=== PATIENT | male | born 1950 | race Caucasian/White ===

== ENCOUNTER 2016-03-29 09:29 | Outpatient (CLI) | payer MEDICARE, BC ==
[2016-03-29] MEDS ORDERED: ALBUTEROL NEB 2.5 MG/3 ML INH ONE (10:04)
== END 2016-03-29 09:30 | disposition home or self-care (01) ==
DX: R06.2 Wheezing (principal); J98.4 Other disorders of lung
CPT/HCPCS: 94060; 94729; J7613

== ENCOUNTER 2016-04-15 07:10 | Outpatient (CLI) | payer MEDICARE, BC ==
[2016-04-15] MEDS ORDERED: IOPAMIDOL-300 100 ML VIAL IVP ONE (11:47)
== END 2016-04-15 07:11 | disposition home or self-care (01) ==
DX: J98.4 Other disorders of lung (principal); J44.9 Chronic obstructive pulmonary disease, unspecified; J45.909 Unspecified asthma, uncomplicated
CPT/HCPCS: 71260; Q9967

== ENCOUNTER 2016-10-18 09:11 | Outpatient (CLI) | payer MEDICARE, BC ==
--- NOTE | 2016-10-18 10:19 | XRAY Report ---
MODIFIED BARIUM SWALLOW: 10/18/2016 CLINICAL INDICATION: Dysphagia. FINDINGS: Various consistencies of barium were prepared and administered in conjunction with Speech Pathology. There is trace penetration with thin liquids, without casey aspiration. Other consistenc ies are unremarkable. Please also refer to full report from Speech Pathology. IMPRESSION: TRACE PENETRATION WITH THIN LIQUIDS, WITHOUT CASEY ASPIRATION. FLUOROSCOPY TIME: 58 seconds; 1 spot image obtained (cinefluoroscopy recorded). JOB #: [id number] EXT JOB #:[id number]
== END 2016-10-18 09:12 | disposition home or self-care (01) ==
LOC: DI 09:11
PROVIDERS: ATTEND Physician Assistant Medical
DX: R13.10 Dysphagia, unspecified (principal)
CPT/HCPCS: 74230; 92611; G8996; G8997; G8998

== ENCOUNTER 2017-04-13 09:11 | Day surgery (SDC) | payer MEDICARE, BC ==
[2017-04-13] MEDS ORDERED: LACTATED RINGERS 1,000 ML IV ONE ×3 (09:39→10:03)
[2017-04-13] MEDS ORDERED: MIDAZOLAM 2 MG/2 ML VIAL IVP ONE (09:57)
[2017-04-13] MEDS ORDERED: fentaNYL 100 MCG/2 ML VIAL IVP ONE (09:57)
[2017-04-13 11:01] VITALS: BP 105/65
== END 2017-04-13 09:12 | disposition home or self-care (01) ==
LOC: SDS 09:11
PROVIDERS: ATTEND Surgery
PROC: 0DJD8ZZ Inspection of Lower Intestinal Tract, Via Natural or Artificial Opening Endoscopic (ICD-10-PCS; principal; 2017-04-13 10:30)
DX: Z12.11 Encounter for screening for malignant neoplasm of colon (principal); Z86.010 Personal history of colon polyps; K64.8 Other hemorrhoids; K57.30 Diverticulosis of large intestine without perforation or abscess without bleeding; K55.20 Angiodysplasia of colon without hemorrhage; I10 Essential (primary) hypertension; Z87.891 Personal history of nicotine dependence
CPT/HCPCS: G0105; J7120

== ENCOUNTER 2017-11-07 08:47 | Emergency (ER) | payer MEDICARE, BC ==
[2017-11-07] MEDS ORDERED: LIDOCAINE PATCH 5% TOP PRN (09:24)
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
[2017-11-07] MEDS ORDERED: IOPAMIDOL-300 100 ML VIAL ONE (09:28)
[2017-11-07 10:38] LABS: BASOPHILS % (AUTO) 0.9 %; EOSINOPHILS # (AUTO) 0.4 10^3/uL (0.0-0.7); EOSINOPHILS % (AUTO) 7.4 %; LYMPHOCYTES # (AUTO) 1.1 10^3/uL (1.5-3.5); LYMPHOCYTES % (AUTO) 19.6 %; MEAN CORPUSCULAR HEMOGLOBIN 30.6 pg (27.0-31.0); MEAN CORPUSCULAR HGB CONC 33.6 g/dL (32.0-36.0); MEAN CORPUSCULAR VOLUME 90.9 fL (80.0-94.0); MEAN PLATELET VOLUME 8.7 fL (7.4-11.4); MONOCYTES # (AUTO) 0.6 10^3/uL (0.0-1.0); MONOCYTES % (AUTO) 11.2 %; NEUTROPHILS # (AUTO) 3.4 10^3/uL (1.5-6.6); NEUTROPHILS % (AUTO) 60.9 %; PLT - PLATELET COUNT 179 10^3/uL (130-450); RED BLOOD COUNT 6.23 10^6/uL (4.70-6.10); RED CELL DISTRIBUTION WIDTH 16.3 % (12.0-15.0); WHITE BLOOD COUNT 5.7 x10^3/uL (4.8-10.8)
[2017-11-07 10:52] LABS: ALBUMIN 4.4 g/dL (3.2-5.5); ALBUMIN/GLOBULIN RATIO 1.3 (1.0-2.2); BILIRUBIN,TOTAL 1.1 mg/dL (0.2-1.0); CALCIUM 9.3 mg/dL (8.5-10.3); CREATININE 0.9 mg/dL (0.6-1.2); TOTAL PROTEIN 7.7 g/dL (6.7-8.2)
[2017-11-07 11:04] LABS: BILIRUBIN,URINE NEGATIVE (NEGATIVE); GLUCOSE, URINE (UA) NEGATIVE (NEGATIVE); KETONES,URINE (UA) NEGATIVE (NEGATIVE); LEUKOCYTE ESTERASE, URINE NEGATIVE (NEGATIVE); NITRITE,URINE NEGATIVE (NEGATIVE); OCCULT BLOOD,URINE NEGATIVE (NEGATIVE); PROTEIN,URINE NEGATIVE (NEGATIVE); UROBILINOGEN,URINE 0.2 (NORMAL) E.U./dL (NORMAL)
[2017-11-07 11:08] LABS: CLARITY,URINE CLEAR (CLEAR)
[2017-11-07] MEDS ORDERED: IOPAMIDOL-300 100 ML VIAL IVP ONE (11:17)
--- NOTE | 2017-11-07 11:41 | CT Report ---
Reason: blunt trauma R mid abd, flank pain Procedure Date: 11/07/2017 Accession Number: [id number] / [id number] Procedure: CT - Abdomen/Pelvis W/ CPT Code: FULL RESULT: EXAM: CT ABDOMEN AND PELVIS EXAM DATE: 11/07/2017 11:14 AM. CLINICAL HISTORY: Blunt trauma right mid abdomen; flank pain. COMPARISONS: None. TECHNIQUE: Routine helical CT imaging was performed through the abdomen and pelvis. IV contrast: CE. Enteric contrast: No. Reconstructions: Coronal and sagittal. In accordance with CT protocol optimization, one or more of the following dose reduction techniques were utilized for this exam: automated exposure control, adjustment of mA and/or KV based on patient size, or use of iterative reconstructive technique. FINDINGS: Lung Bases: Unremarkable. Liver: Normal. No masses. Gallbladder/Bile Ducts: Unremarkable. Spleen: Normal. Pancreas: Normal. Adrenal Glands: Normal. Kidneys: Normal. No masses or hydronephrosis. Peritoneal Cavity/Bowel: Diverticulosis without evidence of diverticulitis. No free fluid, free air or adenopathy. No masses or acute inflammatory process. The appendix is well visualized and normal. Pelvic Organs: Normal. The bladder and visualized pelvic organs are within normal limits. Vasculature: Atherosclerotic aorta without aneurysm. Bones: Degenerative changes with a levoconvex thoracolumbar scoliosis which is mild. No aggressive osseous lesions. Other: Soft tissue stranding is seen in the superficial soft tissues and abdominal wall musculature on the right. Fat-containing umbilical hernia. IMPRESSION: Superficial soft tissue trauma without evidence of deep visceral or osseous injury. RADIA
[2017-11-07 12:38] VITALS: BP 131/71
== END 2017-11-07 13:33 | disposition home or self-care (01) ==
LOC: ED 08:47
DX: S39.91XA Unspecified injury of abdomen, initial encounter (principal); W22.8XXA Striking against or struck by other objects, initial encounter; X50.0XXA Overexertion from strenuous movement or load, initial encounter; I10 Essential (primary) hypertension
CPT/HCPCS: 36415; 74177; 80053; 81003; 83690; 85025; 99283; 99284; A9270; Q9967; 81001; 87086

== ENCOUNTER 2019-04-05 08:44 | Outpatient (CLI) | payer MEDICARE, BC ==
--- NOTE | 2019-04-05 11:31 | Ultrasound Report ---
Reason: INCX HGB, POLYCYTHEMIA Procedure Date: 04/05/2019 Accession Number: [id number] / [id number] Procedure: US - Abdomen Complete CPT Code: Final Report FULL RESULT: EXAM: ABDOMEN ULTRASOUND EXAM DATE: 04/05/2019 09:40 AM. CLINICAL HISTORY: Increased hemoglobin, polycythemia, hypertension, rule out renal tumor. COMPARISON: ABDOMEN/PELVIS W11/07/2017 11:11 AM. TECHNIQUE: Real-time scanning was performed with static images obtained. FINDINGS: Liver: Normal in size and echotexture. 19.4 cm. Main portal vein flow: Hepatopetal. Gallbladder: Normal. No stones, wall thickening, or sonographic Crow's sign. Biliary System: Common bile duct measures 5 mm. No intrahepatic or extrahepatic ductal dilatation. Pancreas: Visualized portion is unremarkable. Kidneys: Right: 11.6 cm longitudinally. Normal. No contour-deforming mass, stones, or hydronephrosis. lobulations present. Left: 12.1 cm longitudinally. Normal. No contour-deforming mass, stones, or hydronephrosis. lobulations present. Spleen: 11.8 cm. Normal in size and echotexture. Aorta and Inferior Vena Cava: Unremarkable. Other: None. IMPRESSION: 1. No renal masses evident bilaterally. 2. Abdominal ultrasound within normal limits. RADIA
== END 2019-04-05 08:45 | disposition home or self-care (01) ==
LOC: DI 08:44
PROVIDERS: ATTEND Internal Medicine
DX: D75.1 Secondary polycythemia (principal)
CPT/HCPCS: 76700

== ENCOUNTER 2019-04-18 08:21 | Outpatient (CLI) | payer MEDICARE, BC | END 2019-04-18 08:22 | disposition home or self-care (01) | LOC: RT 08:21 | PROVIDERS: ATTEND Surgery | DX: K40.90 Unilateral inguinal hernia, without obstruction or gangrene, not specified as recurrent (principal) | CPT/HCPCS: 93005 ==

== ENCOUNTER 2019-04-29 08:28 | Day surgery (SDC) | payer MEDICARE, BC ==
[~2019-04-29 08:28] MED LIST: CEFAZOLIN SODIUM IN 0.9 % NACL 2 GM/100 ML BAG IV ONE; ENOXAPARIN 30 MG/0.3 ML SYRINGE SUBQ ONE
[2019-04-29] MEDS ORDERED: LACTATED RINGERS 1,000 ML IV ONE ×2 (08:37→14:02)
--- NOTE | 2019-04-29 11:12 | ANESTHESIA ---
Pre-Anesthesia VS, & Labs - Diagnosis L inguinal hernia, umbilical hernia - Procedure L inguinal hernia repair, umbilical hernia repair Vital Signs: Temp Pulse Resp BP Pulse Ox 36.2 C L 54 L 12 138/81 H 96 04/29/19 08:37 04/29/19 08:37 04/29/19 08:37 04/29/19 08:37 04/29/19 08:37 Height 5 ft 10 in Weight (kg) 93.5 kg Body Mass Index 29.5 - NPO >8 hours - Lab Results Lab results reviewed: Yes Home Medications and Allergies Home Medications: Ambulatory Orders Cholecalciferol [Vitamin D3] 5,000 unit PO DAILY 04/18/19 Fluocinonide/Emollient Base [Fluocinonide-E 0.05% Cream] 1 applic TP PRN PRN 04/18/19 Metronidazole 1% Gel [Metrogel] 1 applic TOP DAILY PRN 04/18/19 Mometasone Furoate [Asmanex] 100 mcg IH PRN PRN 04/18/19 Nystatin 1 applic TP PRN PRN 04/18/19 [place]-3S/Dha/Epa/Fish Oil [Fish Oil 1,200 mg Softgel] 2 each PO DAILY 04/18/19 Triamcinolone Acetonide 0.1% [Triamcinolone Acetonide] 1 applic TP PRN PRN 04/18/19 Aspirin [Adult Aspirin Regimen] 81 mg PO DAILY 04/29/19 Doxazosin [Cardura] 8 mg PO DAILY 04/12/17 Omeprazole [PriLOSEC] 20 mg PO DAILY 04/12/17 Propranolol [Inderal] 20 - 40 mg PO BID 04/12/17 Testosterone Cypionate 200 mg IM OAW 04/12/17 Montelukast [Singulair] 1 tab ORAL DAILY 01/24/18 Ferrous Sulfate 325 mg PO ONCE 01/09/19 Cholecalciferol [Vitamin D3] 5,000 unit PO DAILY 04/18/19 Fluocinonide/Emollient Base [Fluocinonide-E 0.05% Cream] 1 applic TP PRN PRN 04/18/19 Metronidazole 1% Gel [Metrogel] 1 applic TOP DAILY PRN 04/18/19 Mometasone Furoate [Asmanex] 100 mcg IH PRN PRN 04/18/19 Nystatin 1 applic TP PRN PRN 04/18/19 [place]-3S/Dha/Epa/Fish Oil [Fish Oil 1,200 mg Softgel] 2 each PO DAILY 04/18/19 Triamcinolone Acetonide 0.1% [Triamcinolone Acetonide] 1 applic TP PRN PRN 04/18/19 Aspirin [Adult Aspirin Regimen] 81 mg PO DAILY 04/29/19 Allergies/Adverse Reactions: Allergies Allergy/AdvReac Type Severity Reaction Status Date / Time codeine Allergy Intermediate Nausea Verified 04/10/19 14:14 Anes History & Medical History - Anesthetic History Anesthesia Complications: reports: No previous complications Family history of Anesthesia Complications: Denies Family history of Malignant Hyperthermia: Denies - Medical History Cardiovascular: reports: Hypertension Pulmonary: reports: Asthma Gastrointestinal: reports: GERD Urinary: reports: Benign prostate hypertrophy Neuro: reports: None Musculoskeletal: reports: Osteoarthritis, Chronic back pain Endocrine/Autoimmune: reports: None Skin: reports: Eczema, Psoriasis Smoking Status: Former smoker - Surgical History General: Colonoscopy Eyes Ears Nose Throat (EENT): Tonsil/Adenoidectomy Dermatologic: Skin cancer surgery Exam General: Alert, Oriented x3, Cooperative Dental: WNL, Other (recently had 2 upper molars removed 2 weeks ago, no bleeding) Mouth Openin Fingerbreadth Neck Mobility: Normal Mallampati classification: II Thyromental Distance: greater than 6 cm Respiratory: Lungs clear, Normal breath sounds Cardiovascular: Regular rate (gilberto) Neurological: Normal speech Mental/Cognitive Status: Alert/Oriented X3, Normal for patient Cognitive Status: Within normal limits Plan Anesthesia Type: General Consent for Procedure(s) Verified and Reviewed: Yes Code Status: Attempt Resuscitation ASA classification: 2-Mild systemic disease Is this case an emergency?: No
[2019-04-29] MEDS ORDERED: ceFAZolin 1 GM VIAL ONE (11:23)
[2019-04-29] MEDS ORDERED: SODIUM CHLORIDE 0.9% 10 ML ONE (11:23)
[2019-04-29] MEDS ORDERED: LIDOCAINE 1%-EPI 1:100000 20 ML MDV ONE (11:23)
[2019-04-29] MEDS ORDERED: BUPIVACAINE 0.5% PF 10 ML VIAL ONE (11:24)
[2019-04-29] MEDS ORDERED: GLYCOPYRROLATE 1 MG/5 ML VIAL IVP ONE (11:50)
[2019-04-29] MEDS ORDERED: DEXAMETHASONE 4 MG/ML VIAL IVP ONE (11:50)
[2019-04-29] MEDS ORDERED: LIDOCAINE-MPF 2% 5 ML VIAL IM ONE (11:50)
[2019-04-29] MEDS ORDERED: ePHEDrine 50 MG/ML VIAL IVP ONE (11:50)
[2019-04-29] MEDS ORDERED: KETOROLAC 30 MG/ML VIAL IVP ONE (11:50)
[2019-04-29] MEDS ORDERED: PROPOFOL 200 MG/20 ML VIAL IVP ONE (11:50)
[2019-04-29] MEDS ORDERED: NEOSTIGMINE 1 MG/1 ML 10 ML MDV IVP ONE (11:50)
[2019-04-29] MEDS ORDERED: ONDANSETRON 4 MG/2 ML VIAL IVP ONE (11:50)
[2019-04-29] MEDS ORDERED: ACETAMINOPHEN 1,000 MG/100 ML 100 ML IV ONE ×2 (11:50→12:04)
[2019-04-29] MEDS ORDERED: BUPIVACAINE 0.5% PF 30 ML VIAL SUBQ ONE (12:17)
[2019-04-29] MEDS ORDERED: LIDOCAINE 1%-EPI 1:100000 30 ML MDV SUBQ ONE (12:17)
[2019-04-29] MEDS ORDERED: ceFAZolin 1 GM VIAL IVP ONE (12:20)
--- NOTE | 2019-04-29 13:33 | OPERATIVE REPORT ---
Operative Report - General Procedure Date: 04/29/19 Planned Procedure: Umbilical hernia repair and left inguinal hernia repair Pre-Op Diagnosis: Umbilical hernia and left inguinal hernia Procedure Performed: Umbilical hernia repair and left inguinal hernia repair Post Op Diagnosis: Same - Procedure Note Primary Surgeon: Jonelle Anesthesia Provider: TA See Anesthesia Technique: General LMA, Local, Regional block Pathology: None Estimated Blood Loss (mL): 10 Findings: 4 cm umbilical hernia containing a loop of small bowel Indirect left inguinal hernia Complications: None apparent - Other Other Information/Narrative: After obtaining informed consent, the patient is brought to the operating room and placed in the supine position on the operating table. Following successful induction of general endotracheal anesthesia, appropriate padding of all bony prominences, and placement of appropriate monitors, the abdomen was prepped and draped in the standard surgical fashion. A timeout was held per scope protocol. All elements of the surgical safety checklist were followed before, during, and after the procedure. We began the procedure by infiltrating a mixture of local anesthetics around the visible and palpable umbilical defect. An incision was created directly due to through the defect and carried through the skin. We immediately encountered preperitoneal fat. The peritoneum was carefully dissected off of the overlying fascia and closed with a running Vicryl suture. We were careful to dissected in a circumferential fashion to allow space for placement of an adequate sized piece of mesh. We chose a 6.4 cm ventral Virgilio patch. This was placed on the surface of the peritoneum beneath the fascia. It was sewn into place with interrupted Vicryl sutures.The overlying leaflet was then trimmed and sewn to the fascia. The wound was checked for hemostasis. The skin was closed in 2 layers with Vicryl Monocryl suture and Dermabond was applied. We continued the procedure in the left lower quadrant by infiltrating a mixture of local anesthetics medial to the anterior superior iliac spine on the left. This was done to create an ileal inguinal nerve block. We then selected a site for an incision in the left lower quadrant just superior and lateral to the pubic tubercle. This area was anesthetized with additional local anesthetic and an incision was created here.The incision was carried down through the skin and subcutaneous tissue to reveal the fascia of the external oblique aponeurosis. Retractor was placed and the aponeurosis was opened in direction of its fibers. The ilioinguinal nerve was immediately identified. We continued by identifying the spermatic cord and gently encircling it with a [place] drain. The hernia sac was carefully dissected free from the cord structures and was noted to be in the inferior medial position. The sac was in the indirect position. We carefully dissected the spermatic cord from the sac. The hernia sac was then placed back into the abdominal cavity. We elected to repair the hernia with a large Prolene hernia system mesh implant. This was dipped in Ancef containing solution and then deployed into the defect. The posterior leaflet was straightened and flattened in the preperitoneal space. The anterior leaflet was then nicked medially to provide a place for the spermatic cord and then closed with a Vicryl suture. The more inferior aspect was then sewn to Nilay's ligament medially. Laterally it was tucked under the external beak aponeurosis. The wound was checked for hemostasis and irrigated with warm saline solution. It was aspirated free of all fluid and particulate matter. The extra oblique aponeurosis was then closed with a running locking Vicryl suture Gabriela's fascia was closed with Vicryl suture and Monocryl stitches were placed in the skin. All sponge, needle, and instrument counts were correct at the conclusion of the case. The patient was allowed awaken from anesthesia without difficulty and taken to the postanesthesia care unit in good condition.
[2019-04-29] MEDS ORDERED: ACETAMINOPHEN 325 MG TABLET PO PRN (13:38)
[2019-04-29] MEDS ORDERED: IBUPROFEN 600 MG TABLET PO PRN (13:38)
[2019-04-29] MEDS ORDERED: oxyCODONE 5 MG TABLET PO PRN (13:38)
[2019-04-29] MEDS ORDERED: ONDANSETRON 4 MG/2 ML VIAL IVP PRN (13:38)
[2019-04-29] MEDS: oxyCODONE 5 MG TABLET ONE ×3 (14:20→15:08)
[2019-04-29 15:17] VITALS: BP 120/70
== END 2019-04-29 08:29 | disposition home or self-care (01) ==
LOC: SDS 08:28
PROVIDERS: ATTEND Surgery
DX: K40.90 Unilateral inguinal hernia, without obstruction or gangrene, not specified as recurrent (principal); K42.9 Umbilical hernia without obstruction or gangrene; I10 Essential (primary) hypertension; J44.9 Chronic obstructive pulmonary disease, unspecified; K21.9 Gastro-esophageal reflux disease without esophagitis; N40.1 Benign prostatic hyperplasia with lower urinary tract symptoms; M19.90 Unspecified osteoarthritis, unspecified site; M54.9 Dorsalgia, unspecified; G89.29 Other chronic pain; Z79.890 Hormone replacement therapy; Z79.899 Other long term (current) drug therapy; Z85.828 Personal history of other malignant neoplasm of skin; Z87.891 Personal history of nicotine dependence; Z88.5 Allergy status to narcotic agent
CPT/HCPCS: 49505; 49585; A9270; C1781; J0131; J0690; J1650; J7120

== ENCOUNTER 2020-02-20 17:08 | Outpatient (CLI) | payer MEDICARE, BC | END 2020-02-20 17:09 | disposition home or self-care (01) | LOC: COV 17:08 | PROVIDERS: ATTEND Surgery | DX: Z01.812 Encounter for preprocedural laboratory examination (principal); Z20.828 Contact with and (suspected) exposure to other viral communicable diseases; K42.9 Umbilical hernia without obstruction or gangrene ==

== ENCOUNTER 2020-02-24 06:00 | Day surgery (SDC) | payer MEDICARE, BC ==
[2020-02-24] MEDS ORDERED: ceFAZolin 2 GM/50 ML 2 GM/50 ML BAG IV ONE (06:19)
[2020-02-24] MEDS ORDERED: LACTATED RINGERS 1,000 ML IV ONE ×2 (06:54→10:20)
[2020-02-24] MEDS ORDERED: NALOXONE 0.4 MG/ML VIAL IVP PRN (07:24)
[2020-02-24] MEDS ORDERED: MORPHINE 2 MG/ML CARPUJECT IVP PRN (07:24)
[2020-02-24] MEDS ORDERED: ePHEDrine 50 MG/ML VIAL IVP PRN (07:24)
[2020-02-24] MEDS ORDERED: fentaNYL 100 MCG/2 ML VIAL IVP PRN (07:24)
[2020-02-24] MEDS ORDERED: ONDANSETRON 4 MG/2 ML VIAL IVP PRN ×2 (07:24→11:27)
[2020-02-24] MEDS ORDERED: ATROPINE ABBOJECT 1 MG/10 ML SYRINGE IVP PRN (07:24)
[2020-02-24] MEDS ORDERED: METOCLOPRAMIDE 10 MG/2 ML VIAL IVP PRN (07:24)
--- NOTE | 2020-02-24 07:24 | ANESTHESIA ---
Pre-Anesthesia VS, & Labs - Diagnosis recurrent incisional hernia - Procedure laparoscopic incisional hernia repair Vital Signs: Temp Pulse Resp BP Pulse Ox 36.2 C L 56 L 16 124/75 97 02/24/20 06:28 02/24/20 06:28 02/24/20 06:28 02/24/20 06:28 02/24/20 06:28 Height: 5 ft 9 in Weight (kg): 93.2 kg Body Mass Index: 30.3 BMI Classification: Obese - NPO >8 hours - Lab Results Lab results reviewed: Yes Home Medications and Allergies Home Medications: Ambulatory Orders Testosterone Cypionate [Depo-Testosterone] 0.3 ml IM OAW 02/10/20 Doxazosin [Cardura] 8 mg PO DAILY 04/12/17 Omeprazole [PriLOSEC] 20 mg PO DAILY 04/12/17 Propranolol [Inderal] 20 - 40 mg PO BID 04/12/17 Montelukast [Singulair] 1 tab ORAL DAILY 01/24/18 Cholecalciferol [Vitamin D3] 5,000 unit PO DAILY 04/18/19 Mometasone Furoate [Asmanex] 100 mcg IH PRN PRN 04/18/19 Nystatin 1 applic TP PRN PRN 04/18/19 Triamcinolone Acetonide 0.1% [Triamcinolone Acetonide] 1 applic TP PRN PRN 04/18/19 Aspirin [Adult Aspirin Regimen] 81 mg PO DAILY 04/29/19 Testosterone Cypionate [Depo-Testosterone] 0.3 ml IM OAW 02/10/20 Allergies/Adverse Reactions: Allergies Allergy/AdvReac Type Severity Reaction Status Date / Time codeine Allergy Intermediate Nausea Verified 12/25/19 11:01 Anes History & Medical History - Anesthetic History Anesthesia Complications: reports: No previous complications Family history of Anesthesia Complications: Denies Family history of Malignant Hyperthermia: Denies - Medical History Cardiovascular: reports: Hypertension Pulmonary: reports: Asthma Gastrointestinal: reports: GERD Urinary: reports: Benign prostate hypertrophy Neuro: reports: None Musculoskeletal: reports: Osteoarthritis, Scoliosis, Chronic back pain Endocrine/Autoimmune: reports: None Skin: reports: Eczema, Psoriasis Smoking Status: Former smoker - Surgical History General: Colonoscopy Eyes Ears Nose Throat (EENT): Tonsil/Adenoidectomy Dermatologic: Skin cancer surgery Exam General: Alert, Oriented x3, Cooperative, No acute distress Dental: WNL Mallampati classification: II Respiratory: Lungs clear, Normal breath sounds, No respiratory distress, No accessory muscle use Cardiovascular: Regular rate, Normal S1, Normal S2, No murmurs Plan Anesthesia Type: General, Transverse Abdominis Plane (TAP) Block (if requested by surgeon) Consent for Procedure(s) Verified and Reviewed: Yes Code Status: Attempt Resuscitation ASA classification: 2-Mild systemic disease Is this case an emergency?: No
[2020-02-24] MEDS ORDERED: LIDOCAINE-MPF 2% 5 ML VIAL ONE (07:48)
[2020-02-24] MEDS ORDERED: fentaNYL 100 MCG/2 ML VIAL ONE (07:48)
[2020-02-24] MEDS ORDERED: MIDAZOLAM 2 MG/2 ML VIAL ONE (07:48)
[2020-02-24] MEDS ORDERED: PROPOFOL 200 MG/20 ML VIAL IVP ONE (07:48)
[2020-02-24] MEDS ORDERED: ROCURONIUM 50 MG/5 ML VIAL ONE (07:49)
[2020-02-24] MEDS ORDERED: LACTATED RINGERS 1,000 ML IV SCH (08:00)
[2020-02-24] MEDS ORDERED: LIDOCAINE 2%-EPI 1:100000 20 ML MDV ONE (08:11)
[2020-02-24] MEDS ORDERED: ceFAZolin 1 GM VIAL ONE (08:11)
[2020-02-24] MEDS ORDERED: BUPIVACAINE 0.5% PF 30 ML VIAL ONE (08:11)
[2020-02-24] MEDS ORDERED: DEXAMETHASONE 4 MG/ML VIAL ONE (08:35)
[2020-02-24] MEDS ORDERED: KETOROLAC 30 MG/ML VIAL ONE (08:35)
[2020-02-24] MEDS ORDERED: ACETAMINOPHEN 1,000 MG/100 ML 100 ML IV ONE (08:35)
[2020-02-24] MEDS ORDERED: ONDANSETRON 4 MG/2 ML VIAL ONE (08:35)
[2020-02-24] MEDS ORDERED: SODIUM CHLORIDE 0.9% 10 ML ONE (08:39)
[2020-02-24] MEDS ORDERED: GLYCOPYRROLATE 1 MG/5 ML VIAL ONE (08:45)
[2020-02-24] MEDS ORDERED: BUPIVACAINE 0.5% PF 30 ML VIAL INFIL ONE (08:48)
[2020-02-24] MEDS ORDERED: LIDOCAINE 2%-EPI 1:100000 20 ML MDV SUBQ ONE (08:48)
[2020-02-24] MEDS ORDERED: ceFAZolin 1 GM VIAL IR ONE (08:49)
[2020-02-24] MEDS ORDERED: LACTATED RINGERS 200 ML IV ONE (10:00)
[2020-02-24] MEDS ORDERED: HYDROmorphone 0.5 MG/0.5 ML SYRINGE ONE ×2 (10:10→10:42)
--- NOTE | 2020-02-24 10:13 | OPERATIVE REPORT ---
Operative Report - General Procedure Date: 02/24/20 Planned Procedure: Laparoscopic repair of recurrent incisional hernia Pre-Op Diagnosis: Recurrent incisional hernia Procedure Performed: Mini laparotomy with removal of existing mesh and primary closure of ventral defect followed by laparoscopic lysis of adhesions and ventral hernia repair Post Op Diagnosis: Same - Procedure Note Primary Surgeon: Jonelle Anesthesia Provider: TA Perla Anesthesia Technique: General ET tube, Local Pathology: None IV Fluids (mL): 800 Estimated Blood Loss (mL): 50 Indications: Recurrent, symptomatic incisional hernia Findings: Existing mess well incorporated with extension of the hernia defect to the left lateral side and inferiorly Complications: None apparent - Other Other Information/Narrative: After obtaining informed consent, the patient was brought to the operating room and placed in the supine position on the operating table. Following successful induction of general endotracheal anesthesia, appropriate padding of all bony prominences and placement of appropriate monitors, the abdomen was prepped and draped in the standard surgical fashion. A Time Out was held per SCOPE protocol. All elements of the surgical safety checklist were followed before, during, and after the procedure. Following infiltration with local anesthetic to create a field block, an incision was create directly over the hernia near the umbilicus and carried through the skin and subcutaneous tissue to reveal the hernia sack and incarcerated contents. Within this large hernia sack which was entered cautiously and without any inadvertent viscus injury, we noted a knuckle of small bowel and a portion of preperitoneal fat. With great care, this tissue was teased sharply from the surrounding structures using both scalpel and Metzenbaum scissors. The bowel appeared well vascularized and fully viable. The fascia was then dissected to its respective components to allow for the ultimate primary intraperitoneal repair. The existing mesh was incorporated to the superior and left lateral side with a large defect in the sac existing in the right lateral and inferior portion. A very careful and pains taking dissection was performed to remove the existing mesh and define the edges of the defect. The hernia sac was sharply excised from the underlying subcutaneous tissue and removed.#1 Prolene sutures were then placed in the defect to close it primarily to a level where a 12 m meter trocar to be could be placed in the abdomen without leaking. The laparoscopicprocedure was selected due the size of the hernia, The existence of recurrence, and the patient's body habitus. A 12 mm trocar was placed through the defect and the abdomen was insufflated to 15mm of Hg pressure. The camera was placed in the abdominal cavity. Diagnostic laparoscopy revealed right upper quadrant and suprapubic adhesions. These were addressed sharply with laparoscopic scissors until the internal surface of the abdominal wall was free from adhesions with an appropriate surface for mesh placement. Following infiltration with local anesthetic, 4 5mm trocars were placed peripherally. One was placed in each upper quadrant and one in each lower quadrant under direct vision. A [employer] Ventralight ST 15 cm circlular implant was chosen for repair. It was rolled and placed through the centrally placed 12 mm port. The peripheral ports were utilized to straighten and flatten the mesh up against the abdominal wall. The scaffold suture was pulled taut via the 12 mm po rt and we noted good apposition of the mesh to the anterior abdominal wall. The mesh was then fixed to the abdominal wall with absorbable tacks, 30 in total. THis was performed sequentially through the 4 peripheral trocars in a 360 degree fashion. The scaffold suture was then released and the scaffolding removed via the right upper quadrant port. The abdomen was checked for hemostasis. It was irrigated with warm saline solution and aspirated free of all fluid and particulate matter. The trocars were then removed under direct vision and the abdomen was desufflated. The midline wound protector and trocar were then removed. This left a 4 cm defect with straight flat mesh at the base. The fascia was closed with interrupted 0 Vicryl sutures and the umbilicus reconstructed with 3-0 vicryl. The skin incisions were closed with monocryl and Dermabond was applied to the surface of all incisions. All sponge, needle, and instrument counts were correct at the conclusion of the case. The patient was allowed to awaken from anesthesia without difficulty and taken to the post anesthesia care unit in good condition.
[2020-02-24] MEDS: HYDROmorphone 0.5 MG/0.5 ML SYRINGE IVP PRN ×4 (10:14→10:36)
--- NOTE | 2020-02-24 10:42 | ANESTHESIA POST OP EVALUATION ---
Anesthesia Post Eval - Post Anesthesia Eval Vitals: Last Vital Signs Temp 36.5 C 02/24/20 10:40 Pulse 63 02/24/20 10:40 Resp 15 02/24/20 10:40 BP 120/74 02/24/20 10:40 Pulse Ox 96 02/24/20 10:40 CV Function Including HR & BP: positive: Stable Pain Control: positive: Satisfactory Nausea & Vomiting: positive: Negative Mental Status: positive: Baseline Respiratory Status: Airway Patent Hydration Status: Satisfactory Anesthesia Complications: positive: None
[2020-02-24] MEDS ORDERED: oxyCODONE 5 MG TABLET ONE (11:19)
[2020-02-24] MEDS ORDERED: IBUPROFEN 600 MG TABLET PO PRN (11:27)
[2020-02-24] MEDS ORDERED: ACETAMINOPHEN 325 MG TABLET PO PRN (11:27)
[2020-02-24] MEDS ORDERED: oxyCODONE 5 MG TABLET PO PRN (11:27)
[2020-02-24 11:50] VITALS: BP 119/72
[2020-02-24] MEDS ORDERED: ONDANSETRON ODT 4 MG TABLET ONE (12:32)
== END 2020-02-24 06:01 | disposition home or self-care (01) ==
LOC: SDS 06:00
PROVIDERS: ATTEND Surgery
DX: K43.0 Incisional hernia with obstruction, without gangrene (principal); K66.0 Peritoneal adhesions (postprocedural) (postinfection); C61 Malignant neoplasm of prostate; I10 Essential (primary) hypertension; J44.9 Chronic obstructive pulmonary disease, unspecified; D50.9 Iron deficiency anemia, unspecified; D47.3 Essential (hemorrhagic) thrombocythemia; D75.1 Secondary polycythemia; K21.9 Gastro-esophageal reflux disease without esophagitis; L40.9 Psoriasis, unspecified; E66.9 Obesity, unspecified; F41.0 Panic disorder [episodic paroxysmal anxiety]; Z68.30 Body mass index [BMI] 30.0-30.9, adult; M54.30 Sciatica, unspecified side; E78.00 Pure hypercholesterolemia, unspecified; N40.1 Benign prostatic hyperplasia with lower urinary tract symptoms; Z79.51 Long term (current) use of inhaled steroids; Z79.82 Long term (current) use of aspirin; Z79.899 Other long term (current) drug therapy; Z87.891 Personal history of nicotine dependence
CPT/HCPCS: 49657; A9270; J0131; J0690; J1170; J7120; Q0162

== ENCOUNTER 2022-07-04 08:03 | Outpatient (CLI) | payer MEDICARE, BC ==
[2022-07-04 08:21] LABS: BASOPHILS % (AUTO) 0.2 %; EOSINOPHILS % (AUTO) 0.6 %; HCT - HEMATOCRIT 39.9 % (42.0-52.0); HGB - HEMOGLOBIN 12.8 g/dL (14.0-18.0); MEAN CORPUSCULAR HEMOGLOBIN 29.8 pg (27.0-31.0); MEAN CORPUSCULAR HGB CONC 32.1 g/dL (32.0-36.0); MEAN CORPUSCULAR VOLUME 92.8 fL (80.0-94.0); MONOCYTES # (AUTO) 1.5 10^3/uL (0.0-1.0); MONOCYTES % (AUTO) 29.5 %; NEUTROPHILS # (AUTO) 2.4 10^3/uL (1.5-6.6); NEUTROPHILS % (AUTO) 48.9 %; PLT - PLATELET COUNT 158 10^3/uL (130-450); RED CELL DISTRIBUTION WIDTH 25.2 % (12.0-15.0)
[2022-07-04 08:44] LABS: ALBUMIN 4.1 g/dL (3.2-5.5); ALBUMIN/GLOBULIN RATIO 1.4 (1.0-2.2); ALKALINE PHOSPHATASE 59 IU/L (42-121); ALT ALANINE AMINOTRANSFERASE 15 IU/L (10-60); AST ASPARTATE AMINOTRANSFERASE 19 IU/L (10-42); BILIRUBIN,TOTAL 1.3 mg/dL (0.2-1.0); BUN - BLOOD UREA NITROGEN 11 mg/dL (6-20); CALCIUM 8.8 mg/dL (8.5-10.3); CARBON DIOXIDE - CO2 28 mmol/L (21-32); CHLORIDE 103 mmol/L (101-111); CHOL/HDL RATIO 4.6 (<5.0); CHOLESTEROL 128 mg/dL; CREATININE 0.7 mg/dL (0.6-1.2); GFR - MDRD 111 (>89); GLUCOSE 127 mg/dL (70-100); HDL CHOLESTEROL 28 mg/dL; LDL CHOLESTEROL,CALCULATED 78 mg/dL; LDL/HDL RATIO 2.8 (<3.6); SODIUM 139 mmol/L (135-145); TOTAL PROTEIN 7.1 g/dL (6.7-8.2); TRIGLYCERIDES 112 mg/dL; VLDL CHOLESTEROL 22 mg/dL
[2022-07-04 08:51] LABS: RBC MORPHOLOGY (MULTIPLE) 4+ ANISOCYTOSIS (NORMAL); SLIDE REVIEW? Indicated
[2022-07-04 09:03] LABS: THYROID STIMULATING HORMONE 1.32 uIU/mL (0.34-5.60)
== END 2022-07-04 08:04 | disposition home or self-care (01) ==
LOC: LAB 08:03
PROVIDERS: ATTEND Physician Assistant Medical
DX: I10 Essential (primary) hypertension (principal); Z13.29 Encounter for screening for other suspected endocrine disorder
CPT/HCPCS: 36415; 80053; 80061; 83721; 84443; 85025

== ENCOUNTER 2022-07-19 13:39 | Outpatient (CLI) | payer MEDICARE, BC ==
[2022-07-19] MEDS ORDERED: iohexoL-300 100 ML VIAL ONE (13:58)
[2022-07-19] MEDS ORDERED: DIATRIZOATE MEGLU/DIATRIZO SOD 30 ML BOTTLE PO ONE (16:48)
[2022-07-19] MEDS ORDERED: iohexoL-300 100 ML VIAL IVP ONE (16:49)
--- NOTE | 2022-07-20 09:14 | CT Report ---
PROCEDURE: CHEST W INDICATIONS: LOSS OF APPETITE CONTRAST: 100mL Omni 300 TECHNIQUE: After the administration of intravenous contrast, 1 mm axial images were acquired from the pulmonary apices through the posterior costophrenic angles. Axial 5 mm soft tissue kernel reconstructions were performed as well as 8 mm axial MIP and coronal and sagittal 5 mm reformations. For radiation dose reduction, the following was used: automated exposure control, adjustment of mA and/or kV according to patient size. COMPARISON: CT chest 04/15/2016. FINDINGS: Lymph nodes: No highly suspicious lymph nodes visualized. Vasculature: Aorta and main pulmonary artery diameters are within normal range. Heart: No pericardial effusion. Multivessel coronary artery calcifications and/or stents. Lung parenchyma and pleura: No consolidation, pleural effusion, or pneumothorax. 5 mm right middle lo be pulmonary nodule (3/218) not significantly changed. Chest wall/musculoskeletal: Multilevel degenerative change of the visualized spine. Visualized upper abdomen: Dictated separately. IMPRESSION: 1. No consolidation or pleural effusion. 2. Same-day CT of the abdomen and pelvis is dictated separately. Reviewed by: Antione Pace MD on 07/20/2022 9:12 AM PDT Approved by: Antione Pace MD on 07/20/2022 9:12 AM PDT Station ID: [id number]
--- NOTE | 2022-07-20 09:37 | CT Report ---
PROCEDURE: ABDOMEN/PELVIS W INDICATIONS: LOSS OF APPETITE CONTRAST: 100mL Omni 300 TECHNIQUE: After the administration of oral and intravenous contrast, 5 mm thick sections acquired from the diap hragms to the symphysis. 5 mm thick coronal and sagittal reformats were acquired. For radiation dos e reduction, the following was used: automated exposure control, adjustment of mA and/or kV accordin g to patient size. COMPARISON: CT abdomen pelvis 11/07/2017 FINDINGS: Visualized lung bases: Dictated separately. Liver and biliary tree: No suspect focal hepatic lesion. No biliary ductal dilation. Gallbladder: Possible stones and/or sludge (). Spleen: Unremarkable. Pancreas: Unremarkable. Adrenal glands: Unremarkable. Kidneys and ureters: No hydronephrosis. Gastrointestinal tract: No bowel obstruction. Moderate-severe predominantly sigmoid colonic diverticu losis without evidence of acute diverticulitis. Peritoneal cavity: No free air or free fluid. Bladder: Possible wall thickening. Pelvic organs: Prostate fiducial markers, otherwise unremarkable CT appearance. Vasculature: No abdominal aortic aneurysm. Lymph nodes: No highly suspicious lymph nodes identified. Abdominal wall: Periumbilical abdominal wall hernia containing fat and a loop of nondilated small bow el. Neck of the hernia measures approximately 3.5 cm measured in the axial plane. Musculoskeletal: Degenerative change of the spine. IMPRESSION: 1. Periumbilical abdominal wall hernia containing fat and a loop of nondilated small bowel. No eviden ce of associated mechanical bowel obstruction at this time. 2. Possible gallbladder sludge and/or stones. Abdominal ultrasound could be obtained for further eval uation if indicated. 3. Same-day CT of the chest is dictated separately. Reviewed by: Antione Pace MD on 07/20/2022 9:36 AM PDT Approved by: Antione Pace MD on 07/20/2022 9:36 AM PDT Station ID: [id number]
== END 2022-07-19 13:40 | disposition home or self-care (01) ==
LOC: DI 13:39
PROVIDERS: ATTEND Physician Assistant Medical
DX: R63.0 Anorexia (principal); K42.9 Umbilical hernia without obstruction or gangrene
CPT/HCPCS: 71260; 74177; Q9963; Q9967

== ENCOUNTER 2022-12-15 09:53 | Outpatient (CLI) | payer MEDICARE, BC ==
--- NOTE | 2022-12-15 22:47 | XRAY Report ---
PROCEDURE: Hand 3 View LT INDICATIONS: LEFT HAND DOG BITE TECHNIQUE: 3 views of the hand(s) acquired. COMPARISON: None. FINDINGS: Bones: No fractures or dislocations. No suspicious bony lesions. Mild osteoarthritic changes in wri st and hand. Soft tissues: No suspicious soft tissue calcifications or masses. IMPRESSION: No acute bony abnormality. No radiopaque foreign body. Reviewed by: Dima Marcus MD on 12/15/2022 10:46 PM PDT Approved by: Dima Marcus MD on 12/15/2022 10:46 PM PDT Station ID: [id number]
== END 2022-12-15 23:59 | disposition home or self-care (01) ==
LOC: DI.S 09:53
PROVIDERS: ATTEND Physician Assistant
DX: S61.452A Open bite of left hand, initial encounter (principal)

== ENCOUNTER 2022-12-31 09:03 | Outpatient (CLI) | payer MEDICARE, BC | END 2022-12-31 09:04 | disposition critical access hospital (66) | LOC: EMS 09:03 | DX: K42.9 Umbilical hernia without obstruction or gangrene (principal); R10.13 Epigastric pain; R11.0 Nausea; R42 Dizziness and giddiness; R00.1 Bradycardia, unspecified | CPT/HCPCS: A0425; A0427 ==

== ENCOUNTER 2022-12-31 09:07 | Emergency (ER) | payer MEDICARE, BC ==
--- NOTE | 2022-12-31 09:49 | ED Physician Documentation ---
PD HPI ABD PAIN - Stated complaint Stated Complaint: ABD PX - Chief complaint Chief Complaint: Abd Pain - History obtained from History obtained from: Patient, Family - History of Present Illness Timing - onset: Today Timing - duration: Hours Timing - details: Abrupt onset, Still present Quality: Cramping, Sharp, Pain Location: Periumbilical Radiation: Lower back Improved by: Laying still Worsened by: Moving, Breathing, Position, Palpation Associated symptoms: Nausea, Vomiting (dry heaves) Similar symptoms before: Diagnosis (ventral hernia) Recently seen: Not recently seen - Additional information Additional information: 72-year-old Duane Kamara has a history of polycythemia and he has had phlebotomy a number of times leading to an iron deficiency.He has had an abdominal ventral hernia that has been repaired with mesh in 2020. He has had a problem with this abdominal hernia since and has a hernia mass in the right periumbilical area. This is usually not painful today the mass is present firm and very painful. He has had vomiting associated with this today. Review of Systems Constitutional: denies: Fever Ears: denies: Ear pain Nose: denies: Congestion Throat: denies: Sore throat Cardiac: denies: Chest pain / pressure, Palpitations Respiratory: denies: Dyspnea, Cough GI: reports: Abdominal Pain, Abdominal Swelling, Nausea, Vomiting PD PAST MEDICAL HISTORY - Past Medical History Cardiovascular: Hypertension Respiratory: Asthma Neuro: None Endocrine/Autoimmune: None GI: GERD : Benign prostate hypertrophy HEENT: Chronic vision loss Psych: Anxiety, Panic attacks, Claustrophobia Musculoskeletal: Osteoarthritis, Scoliosis, Chronic back pain Derm: Eczema, Psoriasis - Past Surgical History Past Surgical History: No General: Colonoscopy HEENT: Tonsil/Adenoidectomy Derm: Skin cancer surgery - Present Medications Home Medications: Ambulatory Orders Medication Instructions Recorded Confirmed Omeprazole [PriLOSEC] 20 mg PO DAILY 04/12/17 12/21/22 Propranolol [Inderal] 20 - 40 mg PO BID 04/12/17 12/21/22 Montelukast [Singulair] 1 tab ORAL DAILY 01/24/18 12/21/22 Cholecalciferol [Vitamin D3] 5,000 unit PO DAILY 04/18/19 12/21/22 Mometasone Furoate [Asmanex] 100 mcg IH PRN PRN 04/18/19 12/21/22 Nystatin 1 applic TP PRN PRN 04/18/19 12/21/22 Triamcinolone Acetonide 0.1% 1 applic TP PRN PRN 04/18/19 12/21/22 [Triamcinolone Acetonide] Testosterone Cypionate 0.3 ml IM OAW 02/10/20 12/21/22 [Depo-Testosterone] Ondansetron Odt [Zofran Odt] 4 mg TL Q6H PRN #30 tablet 02/24/20 12/21/22 - Allergies Allergies/Adverse Reactions: Allergies Allergy/AdvReac Type Severity Reaction Status Date / Time codeine Allergy Intermediate Nausea Verified 09/16/20 09:31 - Social History Does the pt smoke?: No Smoking Status: Never smoker Does the pt drink ETOH?: Yes - Immunizations Immunizations are current?: Yes - POLST Patient has POLST: No PD ED PE NORMAL - Vitals Vital signs reviewed: Yes (Hypertensive) - General General: Alert and oriented X 3, Well developed/nourished, Other (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 The mass is firm and it is fully reduced after continuous pressure. This fully resolves the patient's symptoms.) - Back Back: No CVA TTP, No spinal TTP - Derm Derm: Normal color, Warm and dry, No rash - Extremities Extremities: No deformity, No edema - Neuro Neuro: Alert and oriented X 3, sales and marketing agent 2-12 intact, No motor deficit, No sensory deficit, Normal speech Eye Opening: Spontaneous Motor: Obeys Commands Verbal: Oriented GCS Score: 15 - Psych Psych: Normal mood, Normal affect Results - Vitals Vitals: Vital Signs - 24 hr 12/31/22 12/31/22 09:10 10:21 Temperature 36.5 C 36.8 C Heart Rate 47 L 48 L Respiratory 20 16 Rate Blood Pressure 178/85 H 143/70 H O2 Saturation 100 95 Oxygen O2 Source Room air PD Medical Decision Making - ED course Complexity details: considered differential, d/w patient, d/w family ED course: Duane Kamara presented to the emergency department with acute right-sided abdominal pain and a painful ventral wall hernia. The hernia was reduced with circumferential pressure over a period of 3 minutes. This resolved the patient's symptoms. I have asked the patient to follow-up with the surgeon regarding the potential for fixing this hernia and I have discussed with the patient his role in attempting to reduce the hernia if it gets stuck. He is already using a hernia truss when he is working and he does a lot of outdoor work. He still does not have all of his firewood in for the year. At this point this is a practical matter for this patient and he is given adequate instruction in hernia reduction. Departure - Departure Disposition: 01 Home, Self Care Clinical Impression: Ventral hernia Qualifiers: Obstruction and gangrene presence: without obstruction or gangrene Qualified Code(s): K43.9 - Ventral hernia without obstruction or gangrene Condition: Stable Instructions: Hernia, ED Hernia Inguinal Follow-Up: Ximena Woodson PA-C [Provider Admit Priv/Credential] - Comments: Luis M, today it looks like the intense pain you were having today was related to your hernia being strangulated. It looks like you have a fairly large hernia defect and this should make it easier for you to be able to get the hernia to go back in when it is "stuck". If you develop pain again with this firm mass, put your hands around the mass and apply firm pressure until the mass disappears into your abdomen. If you are unable to get the hernia to reduce come in to see us at any time of the day or night. We did find you have gallstones today and a follow up formal ultrasound and review with the surgeon is indicated. Discharge Date/Time: 12/31/22 10:40
[2022-12-31 10:27] VITALS: BP 143/70; O2SAT 95
== END 2022-12-31 10:40 | disposition home or self-care (01) ==
LOC: EDUNIT# → ED 09:07
DX: K43.9 Ventral hernia without obstruction or gangrene (principal); I10 Essential (primary) hypertension
CPT/HCPCS: 99283

== ENCOUNTER 2023-02-08 06:50 | Outpatient (CLI) | payer MEDICARE, BC ==
--- NOTE | 2023-02-08 08:29 | Ultrasound Report ---
PROCEDURE: Abdomen Limited INDICATIONS: NAUSEA TECHNIQUE: Real-time focused scanning was performed of the abdomen, with image documentation. COMPARISONS: None. FINDINGS: Liver: The liver measures 12.3 cm in length and demonstrates slightly increased echogenicity. Gallbladder: The gallbladder wall measures 3 mm in diameter. No stones, sludge, pericholecystic fluid or sonographic Crow sign. Biliary ducts: Intrahepatic bile ducts are non-dilated. Extrahepatic bile duct caliber measures 3 m m. Normal is 6-7 mm or less in diameter, or 10 mm or less post-cholecystectomy. Pancreas: Visualized portions of the pancreas are sonographically normal. Right kidney: Normal in size and echotexture. Right kidney measures 11.2 cm long. No hydronephrosis or nephrolithiasis. No solid masses. No complex renal cystic lesions which require follow-up. A simp le 1.9 cm cyst is present within the lateral right kidney. IVC: Intrahepatic inferior vena cava is patent. Miscellaneous: No free abdominal fluid. IMPRESSION: 1. Slightly increased hepatic echogenicity suggesting hepatic steatosis although other sources of hep atocellular dysfunction could be considered in the differential diagnosis. 2. No cholelithiasis or findings to suggest choledocholithiasis or acute cholecystitis. Reviewed by: Mariella Gonzáles MD on 02/08/2023 8:28 AM PST Approved by: Mariella Gonzáles MD on 02/08/2023 8:28 AM PST Station ID: [id number]
== END 2023-02-08 06:51 | disposition home or self-care (01) ==
LOC: DI 06:50
PROVIDERS: ATTEND Surgery
DX: R63.0 Anorexia (principal); R11.0 Nausea

== ENCOUNTER 2023-02-15 09:05 | Day surgery (SDC) | payer MEDICARE, BC ==
[2023-02-15] MEDS ORDERED: PROPOFOL 500 MG/50 ML 500 MG/50 ML VIAL ONE (09:09)
[2023-02-15] MEDS ORDERED: LACTATED RINGERS 1,000 ML IV ONE ×2 (09:14)
[2023-02-15] MEDS ORDERED: MIDAZOLAM 2 MG/2 ML VIAL ONE (09:33)
--- NOTE | 2023-02-15 09:39 | ANESTHESIA ---
Pre-Anesthesia VS, & Labs - Diagnosis GERD, Anemia - Procedure EGD and colonoscopy Vital Signs: Temp Pulse Resp BP Pulse Ox O2 Flow Rate 36.7 C 59 L 17 127/79 98 02/15/23 09:26 02/15/23 09:26 02/15/23 09:26 02/15/23 09:26 02/15/23 09:26 Height: 5 ft 9 in Weight (kg): 80.1 kg Body Mass Index: 26.0 BMI Classification: Overweight - NPO >8 hours Home Medications and Allergies Home Medications: Ambulatory Orders Albuterol Sulf [Ventolin Hfa Inhaler] 1 - 2 puffs INH Q4HR PRN 02/06/23 Vitamin B Complex 1 each PO DAILY 02/06/23 oxyBUTYnin chloride [Oxybutynin Chloride] 5 mg PO DAILY 02/06/23 Omeprazole [PriLOSEC] 20 mg PO DAILY 04/12/17 Propranolol [Inderal] 20 - 40 mg PO BID 04/12/17 Montelukast [Singulair] 1 tab ORAL DAILY 01/24/18 Cholecalciferol [Vitamin D3] 5,000 unit PO DAILY 04/18/19 Nystatin 1 applic TP PRN PRN 04/18/19 Triamcinolone Acetonide 0.1% [Triamcinolone Acetonide] 1 applic TP PRN PRN 04/18/19 Testosterone Cypionate [Depo-Testosterone] 0.3 ml IM OAW 02/10/20 Albuterol Sulf [Ventolin Hfa Inhaler] 1 - 2 puffs INH Q4HR PRN 02/06/23 Vitamin B Complex 1 each PO DAILY 02/06/23 oxyBUTYnin chloride [Oxybutynin Chloride] 5 mg PO DAILY 02/06/23 Allergies/Adverse Reactions: Allergies Allergy/AdvReac Type Severity Reaction Status Date / Time codeine Allergy Intermediate Nausea Verified 09/16/20 09:31 cefazolin Allergy Itching Verified 02/06/23 14:46 Anes History & Medical History - Anesthetic History Anesthesia Complications: reports: No previous complications - Medical History Cardiovascular: reports: Hypertension Pulmonary: reports: Asthma Gastrointestinal: reports: GERD Urinary: reports: Benign prostate hypertrophy Neuro: reports: None Musculoskeletal: reports: Osteoarthritis, Scoliosis, Chronic back pain Endocrine/Autoimmune: reports: None Skin: reports: Eczema, Psoriasis Smoking Status: Never smoker Psychosocial: reports: Alcohol (40 oz beer daily), Cannabis (smokes twice daily) History of Cancer?: Yes (squamous cell) - Surgical History General: reports: Colonoscopy, Other Eyes Ears Nose Throat (EENT): reports: Tonsil/Adenoidectomy Dermatologic: reports: Skin cancer surgery Exam General: Alert, Oriented x3, Cooperative, No acute distress Dental: Other (front chipped) Mouth Openin Fingerbreadth Neck Mobility: Normal Mallampati classification: II Thyromental Distance: 4-6 cm Mental/Cognitive Status: Alert/Oriented X3, Normal for patient Plan Anesthesia Type: General, Total IV Consent for Procedure(s) Verified and Reviewed: Yes Code Status: Attempt Resuscitation ASA classification: 3-Severe systemic disease Is this case an emergency?: No
[2023-02-15] MEDS ORDERED: PROPOFOL 200 MG/20 ML VIAL IVP ONE (10:14)
[2023-02-15] MEDS ORDERED: LACTATED RINGERS 500 ML IV ONE ×2 (10:39)
[2023-02-15 11:06] VITALS: O2SAT 100
--- NOTE | 2023-02-15 11:21 | ANESTHESIA POST OP EVALUATION ---
Anesthesia Post Eval - Post Anesthesia Eval Vitals: Last Vital Signs Temp 36.3 C L 02/15/23 11:02 Pulse 56 L 02/15/23 11:02 Resp 16 02/15/23 11:02 BP 136/96 H 02/15/23 11:02 Pulse Ox 100 02/15/23 11:02 O2 Flow Rate CV Function Including HR & BP: Stable Pain Control: Satisfactory Nausea & Vomiting: Negative Mental Status: Baseline Respiratory Status: Airway Patent Hydration Status: Satisfactory Anesthesia Complications: None
[2023-02-15 11:34] VITALS: BP 120/65
== END 2023-02-15 09:06 | disposition home or self-care (01) ==
LOC: SDS 09:05
PROVIDERS: ATTEND Surgery
PROC: 0DB68ZX Excision of Stomach, Via Natural or Artificial Opening Endoscopic, Diagnostic (ICD-10-PCS; 2023-02-15)
PROC: 0DBK8ZZ Excision of Ascending Colon, Via Natural or Artificial Opening Endoscopic (ICD-10-PCS; 2023-02-15)
PROC: 0DBM8ZZ Excision of Descending Colon, Via Natural or Artificial Opening Endoscopic (ICD-10-PCS; 2023-02-15)
PROC: 0DBH8ZZ Excision of Cecum, Via Natural or Artificial Opening Endoscopic (ICD-10-PCS; 2023-02-15)
PROC: 0DB48ZX Excision of Esophagogastric Junction, Via Natural or Artificial Opening Endoscopic, Diagnostic (ICD-10-PCS; principal; 2023-02-15 10:30)
PROC: 0DB78ZX Excision of Stomach, Pylorus, Via Natural or Artificial Opening Endoscopic, Diagnostic (ICD-10-PCS; 2023-02-15 10:30)
DX: D50.9 Iron deficiency anemia, unspecified (principal); R11.0 Nausea; R10.13 Epigastric pain; K22.9 Disease of esophagus, unspecified; K29.50 Unspecified chronic gastritis without bleeding; K31.7 Polyp of stomach and duodenum; K25.9 Gastric ulcer, unspecified as acute or chronic, without hemorrhage or perforation; D12.0 Benign neoplasm of cecum; D12.4 Benign neoplasm of descending colon; D12.2 Benign neoplasm of ascending colon; K57.30 Diverticulosis of large intestine without perforation or abscess without bleeding; J45.909 Unspecified asthma, uncomplicated; I10 Essential (primary) hypertension
CPT/HCPCS: 43239; 45380; J7120

== ENCOUNTER 2023-04-20 06:59 | Outpatient (CLI) | payer MEDICARE, BC ==
[2023-04-20 07:48] LABS: PARTIAL THROMBOPLASTIN TIME 27.5 secs (24.9-33.3)
[2023-04-20 07:53] LABS: INR 1.2 (0.8-1.2); PT - PROTHROMBIN TIME 13.1 secs (9.9-12.6)
[2023-04-20] MEDS ORDERED: MIDAZOLAM 2 MG/2 ML VIAL ONE (08:00)
[2023-04-20] MEDS ORDERED: fentaNYL 100 MCG/2 ML VIAL ONE (08:00)
[2023-04-20] MEDS ORDERED: LIDOCAINE-MPF 1% 5 ML VIAL ONE (08:02)
[2023-04-20] MEDS: fentaNYL 100 MCG/2 ML VIAL IVP SCH ×2 (09:40)
[2023-04-20] MEDS: MIDAZOLAM 2 MG/2 ML VIAL IVP ONE (09:40)
[2023-04-20] MEDS: LACTATED RINGERS 1,000 ML IV ONE (10:00)
[2023-04-20 10:36] VITALS: O2SAT 100
[2023-04-20] MEDS: LIDOCAINE-MPF 1% 5 ML VIAL TD ONE (11:42)
[2023-04-20 12:31] VITALS: BP 148/62
--- NOTE | 2023-04-20 21:29 | CT Report ---
PROCEDURE: Bone Marrow Biopsy w/Aspiratio Sedation analgesia for 30 minutes. INDICATIONS: INCREASED HGB TECHNIQUE: The indications, alternatives, benefits, risks, and possible complications of the procedure were comm unicated to the patient. Informed written consent from the patient was obtained and placed in the art. Continuous EKG and hemodynamic monitoring was started by trained personnel. For radiation dose reduction, the following was used: automated exposure control, adjustment of mA and/or kV according to patient size. The patient was brought to the CT suite and canopy inspector spiral CT imaging was performed with localization g rid. The appropriate site for percutaneous access to the biopsy target was marked, was prepped and d raped sterilely, and was infused with local anaesthesia. Under CT guidance, a core biopsy trocar and needle set was advanced to the biopsy target, and specimen(s) were obtained. Both bone marrow aspir ate as well as core samples were obtained. The trocar and needle were then removed, and the patient w as sent for post-procedure monitoring. COMPARISON: None. FINDINGS: Biopsy site: Left iliac Needle: Arrow bone marrow aspiration and biopsy device Number of passes: 1 Medications: 1% lidocaine for local anaesthesia. IV Fentanyl and Versed for conscious sedation for 30 minutes (see nursing record). Complications: None. IMPRESSION: Successful CT-guided biopsy of bone marrow with collection of bone marrow aspirate and b one marrow core sample.. Reviewed by: Graciela Steiner MD on 04/20/2023 9:28 PM PST Approved by: Graciela Steiner MD on 04/20/2023 9:28 PM PST Station ID: [id number]
== END 2023-04-20 07:00 | disposition home or self-care (01) ==
LOC: DI 06:59
PROVIDERS: ATTEND Internal Medicine
DX: D68.9 Coagulation defect, unspecified (principal); D75.89 Other specified diseases of blood and blood-forming organs
CPT/HCPCS: 36415; 38222; 77012; 85610; 85730; 99156; 99157; J7120

== ENCOUNTER 2023-09-20 08:27 | Outpatient (CLI) | payer MEDICARE, BC ==
[2023-09-20 09:04] LABS: CHOL/HDL RATIO 3.9 (<5.0); CHOLESTEROL 131 mg/dL; HDL CHOLESTEROL 34 mg/dL; LDL CHOLESTEROL,CALCULATED 72 mg/dL; LDL/HDL RATIO 2.1 (<3.6); TRIGLYCERIDES 127 mg/dL; VLDL CHOLESTEROL 25 mg/dL
[2023-09-20 14:54] LABS: ESTIMATED AVERAGE GLUCOSE 123 mg/dL (70-100); HEMOGLOBIN A1c% 5.9 % (4.27-6.07)
== END 2023-09-20 08:28 | disposition home or self-care (01) ==
LOC: LAB 08:27
PROVIDERS: ATTEND Physician Assistant Medical
DX: E78.00 Pure hypercholesterolemia, unspecified (principal); R73.9 Hyperglycemia, unspecified
CPT/HCPCS: 36415; 80061; 83036; 83721

== ENCOUNTER 2023-11-03 08:24 | Outpatient (CLI) | payer MEDICARE, BC ==
[2023-11-03 08:37] LABS: BASOPHILS % (AUTO) 0.3 %; EOSINOPHILS % (AUTO) 0.2 %; HCT - HEMATOCRIT 36.5 % (42.0-52.0); HGB - HEMOGLOBIN 11.2 g/dL (14.0-18.0); LYMPHOCYTES # (AUTO) 1.3 10^3/uL (1.5-3.5); LYMPHOCYTES % (AUTO) 20.1 %; MEAN CORPUSCULAR HEMOGLOBIN 27.8 pg (27.0-31.0); MEAN CORPUSCULAR HGB CONC 30.7 g/dL (32.0-36.0); MEAN CORPUSCULAR VOLUME 90.6 fL (80.0-94.0); MEAN PLATELET VOLUME 9.4 fL (7.4-11.4); MONOCYTES # (AUTO) 1.6 10^3/uL (0.0-1.0); MONOCYTES % (AUTO) 25.5 %; NEUTROPHILS # (AUTO) 3.3 10^3/uL (1.5-6.6); NEUTROPHILS % (AUTO) 52.8 %; PLT - PLATELET COUNT 193 10^3/uL (130-450); RED BLOOD COUNT 4.03 10^6/uL (4.70-6.10); RED CELL DISTRIBUTION WIDTH 26.7 % (12.0-15.0); WHITE BLOOD COUNT 6.3 x10^3/uL (4.8-10.8)
[2023-11-03 08:41] LABS: SLIDE REVIEW? Indicated
[2023-11-03 08:56] LABS: RBC MORPHOLOGY (MULTIPLE) 4+ ANISOCYTOSIS (NORMAL)
== END 2023-11-03 08:25 | disposition home or self-care (01) ==
LOC: LAB 08:24
PROVIDERS: ATTEND Urology
DX: C61 Malignant neoplasm of prostate (principal); E29.1 Testicular hypofunction
CPT/HCPCS: 36415; 82670; 84153; 84403; 85025

== ENCOUNTER 2024-02-16 03:50 | Observation (INO) ==
[2024-02-16] MEDS: SODIUM CHLORIDE 0.9% 500 ML IV ONE (04:26)
[2024-02-16 04:30] LABS: BASOPHILS % (AUTO) 0.3 %; EOSINOPHILS % (AUTO) 0.1 %; HGB - HEMOGLOBIN 10.9 g/dL (14.0-18.0); LYMPHOCYTES % (AUTO) 23.3 %; MONOCYTES % (AUTO) 31.8 %
[2024-02-16 04:41] LABS: MEAN CORPUSCULAR HEMOGLOBIN 28.7 pg (27.0-31.0); MEAN CORPUSCULAR VOLUME 86.8 fL (80.0-94.0); RED CELL DISTRIBUTION WIDTH 29.1 % (12.0-15.0)
[2024-02-16 04:43] LABS: PLT - PLATELET COUNT 24 10^3/uL (130-450); WHITE BLOOD COUNT 43.4 x10^3/uL (4.8-10.8)
[2024-02-16 04:44] LABS: ABNORMAL LYMPHS % (MANUAL) 0 %; BAND NEUTROPHILS % (MANUAL) 0 %
[2024-02-16 04:45] LABS: ALBUMIN 3.8 g/dL (3.2-5.5); ALBUMIN/GLOBULIN RATIO 1.4 (1.0-2.2); BILIRUBIN,TOTAL 3.6 mg/dL (0.2-1.0); CALCIUM 8.7 mg/dL (8.5-10.3); CREATININE 1.7 mg/dL (0.6-1.3); POTASSIUM 4.8 mmol/L (3.5-4.5); TOTAL PROTEIN 6.5 g/dL (6.4-8.9)
[2024-02-16 04:49] LABS: VBG HCO3 22.6 mmol/L (23-28); VBG PCO2 28.8 mmHg (41-51); VBG PH 7.502 (7.31-7.41)
[2024-02-16] MEDS: FAMOTIDINE 20 MG/2 ML VIAL IVP STA (04:57)
[2024-02-16] MEDS: ACETAMINOPHEN 325 MG TABLET PO STA (04:57)
[2024-02-16] MEDS: ONDANSETRON 4 MG/2 ML VIAL IVP STA (05:01)
[2024-02-16 05:08] LABS: B. PARAPERTUSSIS- RESP PCR PAN NOT DETECTED; B. PERTUSSIS- RESP PCR PANEL NOT DETECTED; C. PNEUMONIAE- RESP PCR PANEL NOT DETECTED; CORONAVIRUS 229E-RESP PCR NOT DETECTED; CORONAVIRUS HKU1-RESP PCR NOT DETECTED; CORONAVIRUS NL63-RESP PCR NOT DETECTED; CORONAVIRUS OC43-RESP PCR NOT DETECTED; HUMAN METAPNEUMOVIRUS NOT DETECTED; INFLUENZA A- RESP PCR PANEL NOT DETECTED; INFLUENZA B - RESP PCR PANEL NOT DETECTED; M. PNEUMONIAE- RESP PCR PANEL NOT DETECTED; PARAINFLUENZA VIRUS 1 NOT DETECTED; PARAINFLUENZA VIRUS 2 NOT DETECTED; PARAINFLUENZA VIRUS 4 NOT DETECTED; RHINOVIRUS/ENTEROVIRUS NOT DETECTED; RSV- RESP PCR PANEL NOT DETECTED; SARS-CoV-2 -RESP PCR PANEL NOT DETECTED
--- NOTE | 2024-02-16 05:16 | ED Physician Documentation ---
History of Present Illness Stated complaint Stated Complaint: SOA, N/V Chief complaint Chief Complaint: Resp History obtained from History obtained from: Patient Additonal information Additional information: 73yM with pmh MDS, asthma, p/w shortness of air, nausea vomiting and fever for the past 2 days. tmax 99 at home. He has chronic nausea and is a daily marijuana smoker for many years. Meds/Allgy Home Medications Ambulatory Orders Medication Instructions Recorded Confirmed omeprazole 20 mg capsule,delayed 20 mg PO DAILY 04/12/17 08/23/23 release propranolol 40 mg tablet 20 - 40 mg PO BID 04/12/17 08/23/23 montelukast 10 mg tablet 1 tab ORAL DAILY 01/24/18 08/23/23 cholecalciferol (vitamin D3) 125 5,000 unit PO DAILY 04/18/19 08/23/23 mcg (5,000 unit) capsule nystatin 100,000 unit/gram topical 1 applic TP PRN PRN As Needed Per 04/18/19 08/23/23 ointment Provider Orders triamcinolone acetonide 0.1 % 1 applic TP PRN PRN As Needed Per 04/18/19 08/23/23 topical cream Provider Orders testosterone cypionate 200 mg/mL 0.3 ml IM OAW 02/10/20 08/23/23 intramuscular oil (Depo-Testosterone) Oxybutynin Chloride 5 mg PO DAILY 02/06/23 08/23/23 albuterol sulfate 90 mcg/actuation 1 - 2 puff inhalation Q4HR PRN 02/06/23 08/23/23 aerosol inhaler (Ventolin HFA) Shortness Of Air/Wheezing vitamin B complex (B 1 ea PO DAILY 02/06/23 08/23/23 Complex-Vitamin B12 tablet) ondansetron 4 mg disintegrating 4 mg translingual Q6H PRN Nausea / 12/25/23 tablet Vomiting #30 tabs syringe with needle 3 mL 25 gauge #12 ea 01/02/24 x 1" (BD Luer-Ladarius Syringe) Allergies Allergies Allergy/AdvReac Type Severity Reaction Status Date / Time codeine Allergy Intermediate Nausea Verified 02/16/24 03:56 cefazolin Allergy Itching Verified 02/16/24 03:56 [facility] Medical History Medical History (Updated 02/16/24 @ 06:32 by Bri Donaldson MD) Prostate cancer managed with active surveillance Social History Social History Smoking Status: Never smoker If you are a former smoker, when did you quit? (Date/Year): UNKNOWN Do you dip or chew tobacco?: No Patient requests smoking cessation consult: No Initiate information on smoking cessation: No Do you feel safe in your home environment?: Yes Suffered physical, verbal, emotional, or financial abuse?: No History of Abuse: No ETOH Use: Frequency: Occasional POLST Patient has POLST: No Exam Constitutional normal general appearance, no apparent distress and average body habitus HENMT normocephalic and head/scalp atraumatic Eyes PERRL and EOMs intact bilaterally Neck/C-Spine visual inspection normal Lymph no lymphadenopathy noted Chest inspection of chest normal Respiratory breath sounds equal bilaterally and normal respiratory effort increased wob while ambulatory. coarse BL breath sounds, no wheezing Cardiovascular tachycardic rate, regular rhythm Gastrointestinal abdomen normal to inspection, abdomen soft to palpation and nontender to palpation Results Vitals Vitals: Vital Signs - 24 hr 02/16/24 03:54 02/16/24 04:15 02/16/24 04:15 Temperature 36.8 C Temperature Source Temporal Artery Scan Pulse Rate 131 H 130 H Respiratory Rate 18 22 Blood Pressure 122/78 117/78 O2 Saturation 97 90 L Oxygen Delivery Method Nasal Cannula O2 Source Nasal cannula Room air If not protocol: Oxygen Flow, liters/minute 2 4 Pain Intensity 0 0 02/16/24 04:57 02/16/24 05:45 02/16/24 05:45 Temperature Temperature Source Pulse Rate 121 H Respiratory Rate Blood Pressure O2 Saturation Oxygen Delivery Method O2 Source If not protocol: Oxygen Flow, liters/minute Pain Intensity 0 0 Oxygen O2 Source Room air Labs Labs: Laboratory Tests 02/16/24 02/16/24 02/16/24 04:10 04:23 04:23 WBC 43.4 H* RBC 3.80 L Hgb 10.9 L Hct 33.0 L MCV 86.8 MCH 28.7 MCHC 33.0 RDW 29.1 H Plt Count 24 L* Neut # (Auto) Not Reportable Lymph # (Auto) Not Reportable Cook # (Auto) Not Reportable Eos # (Auto) Not Reportable Baso # (Auto) Not Reportable Absolute Nucleated RBC Not Reportable Total Counted 100 Band Neuts % (Manual) 0 Abnorm Lymph % (Manual) 0 Myelocytes % 1 H Other Cells % 13 Nucleated RBC % Not Reportable Neutrophils # (Manual) 20.0 H Lymphocytes # (Manual) 3.0 Monocytes # (Manual) 14.3 H Eosinophils # (Manual) 0.0 Basophils # (Manual) 0.0 Differential Comment MANUAL DIFFERENTIAL WBC Morphology 1+ SMUDGE CELLS Platelet Estimate DECREASED (<130,000) RBC Morph Micro Appear 2+ ANISOCYTOSIS 1+ HYPOCHROMASIA VBG pH VBG pCO2 VBG pO2 VBG HCO3 VBG Total CO2 VBG O2 Saturation VBG Base Excess Sodium Potassium Chloride Carbon Dioxide Anion Gap BUN Creatinine Estimated GFR (MDRD) Glucose Calcium Total Bilirubin AST ALT Alkaline Phosphatase Total Protein Albumin Globulin Albumin/Globulin Ratio Lipase Urine Color Urine Clarity Urine pH Ur Specific [place] Urine Protein Urine Glucose (UA) Urine Ketones Urine Occult Blood Urine Nitrite Urine Bilirubin Urine Urobilinogen Ur Leukocyte Esterase Urine RBC Urine WBC Ur Squamous Epith Cells Urine Bacteria Urine Casts Ur Microscopic Review Urine Culture Comments Nasal Adenovirus (PCR) NOT DETECTED Nasal B. parapertussis DNA (PCR) NOT DETECTED Nasal Coronavir 229E PCR NOT DETECTED Nasal Coronavir HKU1 PCR NOT DETECTED Nasal Coronavir NL63 PCR NOT DETECTED Nasal Coronavir OC43 PCR NOT DETECTED Nasal Enterovir/Rhinovir PCR NOT DETECTED Nasal Influenza B PCR NOT DETECTED Nasal Influenza A PCR NOT DETECTED Nasal Parainfluen 1 PCR NOT DETECTED Nasal Parainfluen 2 PCR NOT DETECTED Nasal Parainfluen 3 PCR NOT DETECTED Nasal Parainfluen 4 PCR NOT DETECTED Nasal RSV (PCR) NOT DETECTED Nasal B.pertussis DNA PCR NOT DETECTED Nasal C.pneumoniae (PCR) NOT DETECTED Javed Human Metapneumo PCR NOT DETECTED Nasal M.pneumoniae (PCR) NOT DETECTED Nasal SARS-CoV-2 (PCR) NOT DETECTED 02/16/24 02/16/24 02/16/24 04:23 04:35 05:39 WBC RBC Hgb Hct MCV MCH MCHC RDW Plt Count Neut # (Auto) Lymph # (Auto) Cook # (Auto) Eos # (Auto) Baso # (Auto) Absolute Nucleated RBC Total Counted Band Neuts % (Manual) Abnorm Lymph % (Manual) Myelocytes % Other Cells % Nucleated RBC % Neutrophils # (Manual) Lymphocytes # (Manual) Monocytes # (Manual) Eosinophils # (Manual) Basophils # (Manual) Differential Comment WBC Morphology Platelet Estimate RBC Morph Micro Appear 1+ POLYCHROMASIA VBG pH 7.502 H VBG pCO2 28.8 L VBG pO2 36.0 VBG HCO3 22.6 L VBG Total CO2 23.0 L VBG O2 Saturation 76.0 VBG Base Excess -1.0 Sodium 131 L Potassium 4.8 H Chloride 95 L Carbon Dioxide 25 Anion Gap 11.0 BUN 29 H Creatinine 1.7 H Estimated GFR (MDRD) 40 L Glucose 105 H Calcium 8.7 Total Bilirubin 3.6 H AST 35 ALT 20 Alkaline Phosphatase 99 Total Protein 6.5 Albumin 3.8 Globulin 2.7 Albumin/Globulin Ratio 1.4 Lipase 11 Urine Color DARK YELLOW Urine Clarity CLEAR Urine pH 5.5 Ur Specific [place] 1.025 Urine Protein 100 H Urine Glucose (UA) NEGATIVE Urine Ketones TRACE Urine Occult Blood NEGATIVE Urine Nitrite NEGATIVE Urine Bilirubin SMALL H Urine Urobilinogen 1 (NORMAL) Ur Leukocyte Esterase NEGATIVE Urine RBC 0-5 Urine WBC 0-3 Ur Squamous Epith Cells RARE Squamous Urine Bacteria Rare Urine Casts 3-5 Course Granular Ur Microscopic Review Urine Culture Comments Nasal Adenovirus (PCR) Nasal B. parapertussis DNA (PCR) Nasal Coronavir 229E PCR Nasal Coronavir HKU1 PCR Nasal Coronavir NL63 PCR Nasal Coronavir OC43 PCR Nasal Enterovir/Rhinovir PCR Nasal Influenza B PCR Nasal Influenza A PCR Nasal Parainfluen 1 PCR Nasal Parainfluen 2 PCR Nasal Parainfluen 3 PCR Nasal Parainfluen 4 PCR Nasal RSV (PCR) Nasal B.pertussis DNA PCR Nasal C.pneumoniae (PCR) Javed Human Metapneumo PCR Nasal M.pneumoniae (PCR) Nasal SARS-CoV-2 (PCR) 02/16/24 05:39 WBC RBC Hgb Hct MCV MCH MCHC RDW Plt Count Neut # (Auto) Lymph # (Auto) Cook # (Auto) Eos # (Auto) Baso # (Auto) Absolute Nucleated RBC Total Counted Band Neuts % (Manual) Abnorm Lymph % (Manual) Myelocytes % Other Cells % Nucleated RBC % Neutrophils # (Manual) Lymphocytes # (Manual) Monocytes # (Manual) Eosinophils # (Manual) Basophils # (Manual) Differential Comment WBC Morphology Platelet Estimate RBC Morph Micro Appear VBG pH VBG pCO2 VBG pO2 VBG HCO3 VBG Total CO2 VBG O2 Saturation VBG Base Excess Sodium Potassium Chloride Carbon Dioxide Anion Gap BUN Creatinine Estimated GFR (MDRD) Glucose Calcium Total Bilirubin AST ALT Alkaline Phosphatase Total Protein Albumin Globulin Albumin/Globulin Ratio Lipase Urine Color Urine Clarity Urine pH Ur Specific [place] Urine Protein Urine Glucose (UA) Urine Ketones Urine Occult Blood Urine Nitrite Urine Bilirubin Urine Urobilinogen Ur Leukocyte Esterase Urine RBC Urine WBC Ur Squamous Epith Cells Urine Bacteria Urine Casts 0-2 Hyaline Casts Ur Microscopic Review INDICATED Urine Culture Comments NOT INDICATED Nasal Adenovirus (PCR) Nasal B. parapertussis DNA (PCR) Nasal Coronavir 229E PCR Nasal Coronavir HKU1 PCR Nasal Coronavir NL63 PCR Nasal Coronavir OC43 PCR Nasal Enterovir/Rhinovir PCR Nasal Influenza B PCR Nasal Influenza A PCR Nasal Parainfluen 1 PCR Nasal Parainfluen 2 PCR Nasal Parainfluen 3 PCR Nasal Parainfluen 4 PCR Nasal RSV (PCR) Nasal B.pertussis DNA PCR Nasal C.pneumoniae (PCR) Javed Human Metapneumo PCR Nasal M.pneumoniae (PCR) Nasal SARS-CoV-2 (PCR) PD Medical Decision Making ED course ED course: 73yM p/w soa, n/v and fever X 2 days. Na 131, K 4.8. Likely dehydrated therefore patient was offered IVF but preferred to drink 1 L by mouth. EVGENY with cre 1.7 (baseline 0.8 12/20/23) and gfr 40. tbili 3.6 today (baseline 0.8 12/20/23). [facility] will need to admit given hypoxia to 89% RA and persistent tachycardia despite hydration. cxr shows developing R pneumonia. IV levoquine and blood cultures ordered. Discharge Plan Discharge Patient Disposition: 66 [facility] DC/Xfer Condition: Fair Clinical Impression: Pneumonia, Hypoxia, Sepsis Prescriptions: No Action ondansetron 4 mg tablet,disintegrating 4 mg translingual Q6H PRN (Reason: Nausea / Vomiting) Qty: 30 0RF (DME) BD Luer-Ladarius Syringe 3 mL 25 gauge x 1" syringe See Rx Instructions .ROUTE .COMPLEX Qty: 12 11RF Dose Instruction: USE 1 SYRINGE EVERY 10 DAYS Rx Instructions: USE 1 SYRINGE EVERY 10 DAYS propranolol 40 MG tablet 20 - 40 mg PO BID Rx Instructions: 20 mg a.m., 40 mg p.m. omeprazole 20 MG capsule,delayed release(DR/EC) 20 mg PO DAILY montelukast 10 MG tablet 1 tab ORAL DAILY triamcinolone acetonide 454 APPLIC/454 GM cream 1 applic TP PRN PRN (Reason: As Needed Per Provider Orders) cholecalciferol (vitamin D3) 5,000 UNIT capsule 5,000 unit PO DAILY nystatin 15 GM ointment 1 applic TP PRN PRN (Reason: As Needed Per Provider Orders) testosterone cypionate [Depo-Testosterone] 200 MG/ML oil 0.3 ml IM OAW vitamin B complex [B Complex-Vitamin B12] 1 EACH tablet 1 ea PO DAILY albuterol sulfate [Ventolin HFA] 200 PUFFS/18 GM HFA aerosol inhaler 1 - 2 puff inhalation Q4HR PRN (Reason: Shortness Of Air/Wheezing) Oxybutynin Chloride 5 MG Tablet 5 mg PO DAILY Patient Comments: Take 1 tablet by mouth once a day Print Language: German Stand Alone Forms: PCP List
[2024-02-16 05:20] LABS: LYMPHOCYTES % (MANUAL) 7 %; MONOCYTES # (MANUAL) 14.3 10^3/uL (0.0-1.0); MYELOCYTES % (MANUAL) 1 %
[2024-02-16 05:21] LABS: PLATELET ESTIMATE, MANUAL DECREASED (<130,000) (NORMAL)
[2024-02-16 05:22] LABS: DIFFERENTIAL COMMENT MANUAL DIFFERENTIAL; OTHER CELLS % (MANUAL) 13 %; WBC MORPHOLOGY (MULTIPLE) 1+ SMUDGE CELLS (NORMAL)
[2024-02-16 05:50] LABS: BILIRUBIN,URINE SMALL (NEGATIVE); GLUCOSE, URINE (UA) NEGATIVE (NEGATIVE); KETONES,URINE (UA) TRACE mg/dL (NEGATIVE); LEUKOCYTE ESTERASE, URINE NEGATIVE (NEGATIVE); NITRITE,URINE NEGATIVE (NEGATIVE); OCCULT BLOOD,URINE NEGATIVE (NEGATIVE); PH,URINE 5.5 PH (5.0-7.5); PROTEIN,URINE 100 mg/dL (NEGATIVE); UROBILINOGEN,URINE 1 (NORMAL) E.U./dL (NORMAL)
[2024-02-16 06:01] LABS: BACTERIA,URINE Rare /HPF (None Seen); CLARITY,URINE CLEAR (CLEAR); RBC,URINE 0-5 /HPF (0-5); SQUAMOUS EPITHELIAL CELL,UR RARE Squamous (<= Few); WBC,URINE 0-3 /HPF (0-3)
[2024-02-16] MEDS: SODIUM CHLORIDE 0.9% 1,500 ML IV ONE (06:30)
[2024-02-16] MEDS: levoFLOXacin 750 MG/150 ML 750 MG/150 ML BAG IV STA (06:44)
--- NOTE | 2024-02-16 07:18 | ED Physician Documentation ---
ED Addendum Addendum Addendum: Care from Dr. Donaldson pending shift change with the hospitalist. Briefly this is a 73-year-old gentleman with myelodysplastic syndrome being observed (i.e. no chemotherapy) with respiratory illness, pneumonia on x-ray, white count of 43 (recent baseline 11) and oxygen requirement. \\he was presented to [facility] for admission at 7:17 AM and she accepts. Discharge Plan Discharge Patient Disposition: 66 [facility] DC/Xfer Condition: Fair Clinical Impression: Pneumonia, Hypoxia, Sepsis Prescriptions: No Action ondansetron 4 mg tablet,disintegrating 4 mg translingual Q6H PRN (Reason: Nausea / Vomiting) Qty: 30 0RF (DME) BD Luer-Ladarius Syringe 3 mL 25 gauge x 1" syringe See Rx Instructions .ROUTE .COMPLEX Qty: 12 11RF Dose Instruction: USE 1 SYRINGE EVERY 10 DAYS Rx Instructions: USE 1 SYRINGE EVERY 10 DAYS propranolol 40 MG tablet 20 - 40 mg PO BID Rx Instructions: 20 mg a.m., 40 mg p.m. omeprazole 20 MG capsule,delayed release(DR/EC) 20 mg PO DAILY montelukast 10 MG tablet 1 tab ORAL DAILY triamcinolone acetonide 454 APPLIC/454 GM cream 1 applic TP PRN PRN (Reason: As Needed Per Provider Orders) cholecalciferol (vitamin D3) 5,000 UNIT capsule 5,000 unit PO DAILY nystatin 15 GM ointment 1 applic TP PRN PRN (Reason: As Needed Per Provider Orders) testosterone cypionate [Depo-Testosterone] 200 MG/ML oil 0.3 ml IM OAW vitamin B complex [B Complex-Vitamin B12] 1 EACH tablet 1 ea PO DAILY albuterol sulfate [Ventolin HFA] 200 PUFFS/18 GM HFA aerosol inhaler 1 - 2 puff inhalation Q4HR PRN (Reason: Shortness Of Air/Wheezing) Oxybutynin Chloride 5 MG Tablet 5 mg PO DAILY Patient Comments: Take 1 tablet by mouth once a day Print Language: Kiswahili
[2024-02-16] MEDS ORDERED: SODIUM CHLORIDE FLUSH 0.9% 10 ML SYRINGE IVP PRN (08:01)
--- NOTE | 2024-02-16 08:13 | HISTORY & PHYSICAL EXAMINATION ---
Chief Complaint Chief Complaint Chief Complaint: shortness of breath History of Present Illness Admitted From Admitted From:: ED History Obtained From Records Reviewed: PCP notes in [place], last oncology note History obtained from: Patient History of Present Illness HPI Comment/Other: 73-year-old male with history of myelodysplastic syndrome diagnosed in the last several months, observational management, presents to the emergency department with progressive shortness of breath times almost 5 days now. Called EMS very early this morning and presented to the emergency department with an oxygen saturation of 90%. He was placed on 4 L via nasal cannula. And improved and was able to wean off of oxygen. However he remains tachycardic with elevated lactic acid and acute kidney injury. He meets criteria for sepsis on admission. He has a history of nausea and vomiting has been going on for many many months. He associates nausea and vomiting with this illness as well. He has a history of asthma and COPD treated with Singulair and inhaled albuterol. History of prostate cancer with observational management as well as iron deficiency anemia. He drinks beer on most days. He denies any history of alcohol withdrawal. He also is a daily smoker of marijuana for many years. Denies use of other illicit drugs. He has a history of several hernia repairs, umbilical and bilateral inguinal hernias. He has a longstanding ventral hernia on the right side of his lower abdomen. This has become incarcerated in the past. He is not having any abdominal pain related to this today. His is his surrogate decision-maker if he is unable to make his medical decisions. When asked about CODE STATUS he says he does not know and would like to discuss this with his . I mention to him that we would like to complete a POLST while he is admitted here in the hospital. Further discussion had later on this afternoon. He continues to be indecisive. Would not want to be dependent on others for all of his care, but would only prefer to survive a catastrophic medical event if he were likely to be able to live at home again following it. . We will continue these discussions. Meds/Allgy Home Medications Ambulatory Orders Medication Instructions Recorded Confirmed omeprazole 20 mg capsule,delayed 20 mg PO DAILY 04/12/17 02/16/24 release propranolol 40 mg tablet 20 - 40 mg PO BID 04/12/17 02/16/24 montelukast 10 mg tablet 1 tab ORAL DAILY 01/24/18 02/16/24 cholecalciferol (vitamin D3) 125 5,000 unit PO DAILY 04/18/19 02/16/24 mcg (5,000 unit) capsule nystatin 100,000 unit/gram topical 1 applic TP PRN PRN As Needed Per 04/18/19 02/16/24 ointment Provider Orders triamcinolone acetonide 0.1 % 1 applic TP PRN PRN As Needed Per 04/18/19 02/16/24 topical cream Provider Orders testosterone cypionate 200 mg/mL 0.3 ml IM OAW 02/10/20 02/16/24 intramuscular oil (Depo-Testosterone) albuterol sulfate 90 mcg/actuation 1 - 2 puff inhalation Q4HR PRN 02/06/23 02/16/24 aerosol inhaler (Ventolin HFA) Shortness Of Air/Wheezing vitamin B complex (B 1 ea PO DAILY 02/06/23 02/16/24 Complex-Vitamin B12 tablet) ondansetron 4 mg disintegrating 4 mg translingual Q6H PRN Nausea / 12/25/23 02/16/24 tablet Vomiting #30 tabs syringe with needle 3 mL 25 gauge #12 ea 01/02/24 x 1" (BD Luer-Ladarius Syringe) oxybutynin chloride 5 mg 5 mg PO DAILY 02/16/24 02/16/24 tablet,extended release 24 hr vit C 250 mg-vit E 200 unit-zinc 1 cap PO BID 02/16/24 02/16/24 ox 12.5 [id number] capsule Allergies Allergies Allergy/AdvReac Type Severity Reaction Status Date / Time codeine Allergy Intermediate Nausea Verified 02/16/24 03:56 cefazolin Allergy Itching Verified 02/16/24 03:56 [facility] Medical History Medical History (Updated 02/16/24 @ 13:31 by ZOË Renteria) Prostate cancer managed with active surveillance Social History Social History Smoking Status: Never smoker If you are a former smoker, when did you quit? (Date/Year): UNKNOWN Second hand tobacco smoke exposure: No Do you dip or chew tobacco?: No Do you vape?: No Patient requests smoking cessation consult: No Initiate information on smoking cessation: No Level: Independent Do you feel safe in your home environment?: Yes Suffered physical, verbal, emotional, or financial abuse?: No History of Abuse: No ETOH Use: Frequency: Occasional Substance Use: cannabis (any form) POLST Patient has POLST: No Review of Systems Status of ROS: 10 or more systems reviewed and unremarkable except as noted in history and below Constitutional Reports: Fatigue and Malaise; Denies: Fever Eyes Denies: Change in vision Ears, nose, mouth, and throat Denies: Ear pain, Tinnitus, Nasal congestion or Throat pain Cardiovascular Reports: shortness of breath with exertion and Decreased exercise tolerance; Denies: Irregular heart rate, chest pain, palpitations or swelling of feet/ankles Respiratory Reports: Shortness of breath, Wheezing, SOB at rest, SOB with exertion and Chest congestion; Denies: Sputum production Gastrointestinal Reports: Nausea, Vomiting and Poor appetite Musculoskeletal Denies: Extremity swelling Integumentary/Breast Denies: Rash Neurological Denies: Headache Psychiatric Reports: Anxiety Endocrine Reports: Fatigue Hematologic/Lymphatic Reports: Anemia Allergic/Immunologic Reports: Wheezing Prior Level of Functionality: independent. Drives, performs all ADLs. Exam Constitutional normal general appearance and no apparent distress well appearing, mild jaundice noted. HENMT normocephalic Eyes scleral icterus noted Neck/C-Spine visual inspection normal Lymph no lymphadenopathy noted Chest inspection of chest normal and palpation of chest normal Respiratory breath sounds equal bilaterally, normal respiratory effort and no wheezes has had recent nebulizer treatment. Cardiovascular heart rate abnormal tachycardic to high 120's throughout his stay Gastrointestinal abdomen normal to inspection and abdomen soft to palpation right sided lower abdominal hernia is noted, soft, easily reduced. Genitourinary no CVA tenderness Extremities normal to inspection Neurology no movement abnormality noted, no focal motor deficit noted, gait normal, speech normal and GCS 15 Psychiatry mental status grossly normal, oriented x3, thought process normal, cooperative and affect normal Skin no rash and jaundice noted slight jaundice noted. Sepsis Event Note (H) Evaluation Current Stage of Sepsis: Sepsis Possible source of Sepsis: positive Pulmonary Sepsis Associated Organ Dysfunction: acute kidney injury, lactic acidosis. Sepsis Criteria Sepsis Criteria: Recorded Heart Rate greater than 90 bpm, WBC count greater than 12,000 or less than 4000, Renal: urine output less than 0.5ml/kg/hr for 2 hours or creatinine gr, Metabolic: lactate > 2 mmol/L and Hepatic: Bilirubin greater than 2mg/dl Conclusion/Plan Problem List (1) Hypoxia: Plan: Acute hypoxic respiratory failure likely secondary to pneumonia, community- acquired as evidenced by bilateral perihilar opacifications. discussed with Dr Toledo in the ED and decision was made to admit. He has an underlying history of asthma/COPD takes Singulair on a daily basis and uses albuterol as needed. He has had increasing shortness of breath over the last 5 days and this worsened this morning when he called EMS and was brought to the emergency department with hypoxia down to about 90%. Since being in the emergency department he has weaned off of oxygen but does remain subjectively short of breath. (2) Sepsis: Plan: Sepsis likely of respiratory origin given findings on his chest x-ray. He has an elevated white blood cell count of 43,000 his baseline is around 11. He has an elevated lactic acid of 4.0 on admission which rises to 4.9 despite fluid resuscitation with 2 L. He shows end organ dysfunction in the form of elevated bilirubin from 0.8 several months ago to 3.6 today. Incidentally he did have a right upper quadrant ultrasound done which did not show any gallstones wall thickening or other evidence of biliary disease. This was done about a year ago. I will repeat the CMP in the AM. Qualifiers: Acute respiratory failure type: with hypoxia Sepsis acute organ dysfunction status: with acute organ dysfunction Sepsis type: sepsis due to unspecified organism Severe sepsis acute organ dysfunction type: acute respiratory failure Severe sepsis shock status: without septic shock Qualified Code(s): A41.9 - Sepsis, unspecified organism; R65.20 - Severe sepsis without septic shock; J96.01 - Acute respiratory failure with hypoxia (3) Tachycardia: Plan: He denies any history of atrial fibrillation. He has been having dyspnea on exertion progressive for the last 5 or so days. At home he has not noticed any swelling of his ankles. He is not having any paroxysmal nocturnal dyspnea. He denies any history of heart problems. He has been tachycardic from the time of presentation into the high 120s. EKG around the time of admission shows a rate of 133 and this is sinus tachycardia. After transfer to the floor his tachycardia increases. EKG is pending at this time. He is tachypneic to rate of about 30 but otherwise denies any chest pain or increasing dyspnea. He is not having any dizziness. He is stood up to vomit several times. And has not had any near syncope. Valsalva maneuver has been ineffective in reducing his heart rate. He has been transferred to the ICU. He will be started on diltiazem drip. This will be for heart rate control. Repeated EKG and it now shows a flutter With his next lab draw within the hour we will be repeating lactate and I will send a troponin at that time. Diltiazem maximized without heart rate control. I have started amiodarone infusion. (4) Acute kidney injury: Plan: Baseline creatinine is 0.8. On presentation today his creatinine is 1.7. This is acute kidney injury likely related to his acute sepsis. He has been treated in the emergency department with sepsis dose fluids. We are continuing him on fluids at a rate of 125 cc/h given his vomiting and disinterest in p.o. intake. I have ordered repeat BMP for the a.m. We will also monitor his urine output (5) Pneumonia: Plan: Chest x-ray shows bilateral perihilar infiltrates. Community-acquired pneumonia associated with sepsis in a patient with myelodysplastic syndrome. He has some mild underlying reactive airway disease which is treated at baseline with Singulair and albuterol as needed. He has a cefazolin allergy and therefore I have ordered Levaquin 750 mg IV daily. He received first dose in the emergency department. Qualifiers: Laterality: bilateral Lung location: unspecified part of lung P neumonia type: due to unspecified organism Qualified Code(s): J18.9 - Pneumonia, unspecified organism (6) MDS (myelodysplastic syndrome), low grade: Plan: This is being managed through observation. no treatment is indicated. he is following with Dr Blackwell in about a month. (7) Thrombocytopenia: Plan: Likely related to his acute illness. No acute bleeding. Will monitor with CBC in AM. Plan IV antibiotics, fluid resuscitation, monitoring of lactic acidosis, control of tachycardia. Patient was also seen briefly by Dr Ward, at the time decision was made to transfer to the ICU. I have spent 90 minutes in the care of this patient today. This includes time [id number], review and ordering of diagnostic imaging and laboratory studies and consultation with other providers.. Monitoring the patient's signs symptoms, evaluation of medication effectiveness and patient's response to treatment. Lab Results Lab results reviewed: Yes 02/16/24 04:23 02/16/24 04:23 Diagnostic Imaging Results Diagnostic Imaging Results: positive Final report reviewed and Read independently EKG Results EKG Interpreted Independently: No EKG Comparison: No prior EKG EKG Findings: Initial EKG shows time sinus tachycardia at a rate of 133. No evidence of ST elevation. Core Measures Anticipated LOS I expect patient to be DC'd or transferred within 96 hours.: Yes Issues Hospital Issues and Management Plan: abx, supportive care, oxygen as needed. DVT/VTE - Prophylaxis VTE/DVT Device ordered at admit?: Yes VTE/DVT Prophylaxis med ordered at admit?: Yes
[2024-02-16] MEDS ORDERED: IPRATROPIUM/ALBUTEROL 3 ML NEB INH PRN (08:19)
--- NOTE | 2024-02-16 08:19 | XRAY Report ---
PROCEDURE: XR Chest 1V INDICATIONS: soa TECHNIQUE: One view of the chest was acquired. COMPARISON: CT chest with contrast 07/19/2022 FINDINGS: Surgical changes and devices: None. Lungs and pleura: No pleural effusions or pneumothorax. Bilateral perihilar opacification extending toward the upper lobes and medial lung bases. Mediastinum: Mediastinal contours appear normal. Heart size is normal. Bones and chest wall: No suspicious bony lesions. Overlying soft tissues appear unremarkable. IMPRESSION: Mild pulmonary edema versus developing pneumonia. The final report is concordant with the preliminary report. Reviewed by: Sebastian Mederos MD on 02/16/2024 8:18 AM PST Approved by: Sebastian Mederos MD on 02/16/2024 8:18 AM PST Station ID: [id number]
[2024-02-16] MEDS ORDERED: LORazepam 0.5 MG TABLET PO PRN (10:00)
[2024-02-16 10:08] LABS: % IRON SATURATION 37 % (20-50); IRON 88 ug/dL (50-212); TOTAL IRON BINDING CAPACITY 237 ug/dL (250-450); TRANSFERRIN 169 mg/dL (203-362)
[2024-02-16] MEDS ORDERED: PROCHLORPERAZINE 10 MG/2 ML VIAL IVP PRN (10:17)
[2024-02-16] MEDS: ONDANSETRON ODT 4 MG TABLET TL PRN (10:21)
--- NOTE | 2024-02-16 10:52 | PHARMACY PROGRESS NOTE ---
Best Possible Medication History Admit Date and Time: 02/16/24 [id number] Home Medications Medication Instructions Recorded Confirmed Type omeprazole 20 mg capsule,delayed 20 mg PO DAILY 04/12/17 02/16/24 History release propranolol 40 mg tablet 20 - 40 mg PO BID 04/12/17 02/16/24 History montelukast 10 mg tablet 1 tab ORAL DAILY 01/24/18 02/16/24 History cholecalciferol (vitamin D3) 125 5,000 unit PO DAILY 04/18/19 02/16/24 History mcg (5,000 unit) capsule nystatin 100,000 unit/gram topical 1 applic TP PRN PRN As Needed Per 04/18/19 02/16/24 History ointment Provider Orders triamcinolone acetonide 0.1 % 1 applic TP PRN PRN As Needed Per 04/18/19 02/16/24 History topical cream Provider Orders testosterone cypionate 200 mg/mL 0.3 ml IM OAW 02/10/20 02/16/24 History intramuscular oil (Depo-Testosterone) albuterol sulfate 90 mcg/actuation 1 - 2 puff inhalation Q4HR PRN 02/06/23 02/16/24 History aerosol inhaler (Ventolin HFA) Shortness Of Air/Wheezing vitamin B complex (B 1 ea PO DAILY 02/06/23 02/16/24 History Complex-Vitamin B12 tablet) ondansetron 4 mg disintegrating 4 mg translingual Q6H PRN Nausea / 12/25/23 02/16/24 Rx tablet Vomiting #30 tabs syringe with needle 3 mL 25 gauge #12 ea 01/02/24 Rx x 1" (BD Luer-Ladarius Syringe) oxybutynin chloride 5 mg 5 mg PO DAILY 02/16/24 02/16/24 History tablet,extended release 24 hr vit C 250 mg-vit E 200 unit-zinc 1 cap PO BID 02/16/24 02/16/24 History ox 12.5 [id number] capsule Processed by: Pharmacy Medications reviewed in ED?: No Medication History completed: Yes Patient Interview: Completed Secondary Source(s): Insurance records [facility] Statement: As the person ultimately responsible for medication therapy, providers are able to order a medication from an existing home medication list in [facility] via the "Reconcile Routine" prior to Confirmation of that medication by it support manager. Such practice is discouraged except when the physician, in their clinical judgment, deems that a medical need exists for a medication without regard to previous use.
[2024-02-16] MEDS: SODIUM CHLORIDE FLUSH 0.9% 10 ML SYRINGE IVP SCH (11:00)
[2024-02-16] MEDS: SODIUM CHLORIDE 0.9% 1,000 ML IV SCH (11:00)
[2024-02-16] MEDS: METOPROLOL 5 MG/5 ML VIAL IVP ONE ×2 (11:28→11:52)
[2024-02-16] MEDS: LORazepam 1 MG TABLET PO PRN (11:33)
[2024-02-16] MEDS: diltiaZEM INJ 125 MG in DEXTROSE 5% 100 ML IV SCH (12:33)
[2024-02-16] MEDS: METOPROLOL 5 MG/5 ML VIAL IVP SCH (13:05)
[2024-02-16] MEDS: AMIODARONE 150 MG/100 ML 100 ML IV ONE (13:32)
[2024-02-16] MEDS: AMIODARONE 360 MG/200 ML 200 ML IV ONE (13:52)
[2024-02-16] MEDS ORDERED: AMIODARONE 360 MG/200 ML 200 ML IV SCH (14:00)
[2024-02-16] MEDS: CEFEPIME 1 GM in SODIUM CHLORIDE 0.9% MINIBAG 100 ML IV SCH (14:28)
[2024-02-16] MEDS: LORazepam 2 MG/ML VIAL IVP PRN (14:28)
[2024-02-16 14:44] LABS: INR 2.4 (0.8-1.2); PT - PROTHROMBIN TIME 24.6 secs (9.9-12.6)
[2024-02-16 14:52] LABS: PARTIAL THROMBOPLASTIN TIME 34.1 secs (24.9-33.3)
[2024-02-16 14:59] LABS: D-DIMER 885.9 ng/mL (200.0-255.0)
[2024-02-16] MEDS: DEXMEDETOMIDINE 400 MCG/100 ML 100 ML IV PRN (15:00)
[2024-02-16] MEDS: VANCOMYCIN INJ 2 GM in SODIUM CHLORIDE 0.9% 500 ML IV ONE (16:42)
[2024-02-16] MEDS: diphenhydrAMINE INJ 50 MG/ML VIAL IVP PRN (16:46)
[2024-02-16 17:07] LABS: BASOPHILS % (AUTO) 0.2 %; HCT - HEMATOCRIT 30.5 % (42.0-52.0); HGB - HEMOGLOBIN 9.4 g/dL (14.0-18.0); LYMPHOCYTES % (AUTO) 19.6 %; MEAN CORPUSCULAR HEMOGLOBIN 28.4 pg (27.0-31.0); MEAN CORPUSCULAR HGB CONC 30.8 g/dL (32.0-36.0); MEAN CORPUSCULAR VOLUME 92.1 fL (80.0-94.0); MONOCYTES % (AUTO) 29.6 %; RED BLOOD COUNT 3.31 10^6/uL (4.70-6.10); RED CELL DISTRIBUTION WIDTH 29.2 % (12.0-15.0)
[2024-02-16] MEDS ORDERED: HALOPERIDOL 5 MG/ML VIAL IVP PRN (17:36)
--- NOTE | 2024-02-16 17:37 | Discharge Summary ---
Discharge Summary Admit Date: 02/16/24 Discharge Date: 02/16/24 Discharging Provider: Venita Marin PA-C Primary Care Provider: Ximena Woodson PA-C Code Status: Attempt Resuscitation DIAGNOSES Discharge Diagnoses with Status of Each Condition: Cardiac arrest with ROSC, subsequently lost pulse, and code discontinued due to futility of efforts, he was overcome by his illness. Acute blast crisis, leading to fulminant multisystem organ failure Acute sepsis, with worsening lactic acidosis, EVGENY, hyperbilirubinemia, thrombocytopenia Acute hypoxic respiratory failure, tachypneic, oxygen requirements between 4 and 6 L via nasal cannula. Tachycardia, atrial fibrillation with RVR, treated with diltiazem and amiodarone Acute kidney injury, present on admission. Pneumonia, present on admission Myelodysplastic syndrome, low-grade. Managed through observation previously Thrombocytopenia, Present on admission. HPI History of Present Illness: 73-year-old male with history of myelodysplastic syndrome diagnosed in the last several months, observational management, presents to the emergency department with progressive shortness of breath times almost 5 days now. Called EMS very early this morning and presented to the emergency department with an oxygen saturation of 90%. He was placed on 4 L via nasal cannula. And improved and was able to wean off of oxygen. However he remains tachycardic with elevated lactic acid and acute kidney injury. He meets criteria for sepsis on admission. He has a history of nausea and vomiting has been going on for many many months. He associates nausea and vomiting with this illness as well. He has a history of asthma and COPD treated with Singulair and inhaled albuterol. History of prostate cancer with observational management as well as iron deficiency anemia. He drinks beer on most days. He denies any history of alcohol withdrawal. He also is a daily smoker of marijuana for many years. Denies use of other illicit drugs. He has a history of several hernia repairs, umbilical and bilateral inguinal hernias. He has a longstanding ventral hernia on the right side of his lower abdomen. This has become incarcerated in the past. He is not having any abdominal pain related to this today. His is his surrogate decision-maker if he is unable to make his medical decisions. When asked about CODE STATUS he says he does not know and would like to discuss this with his . I mention to him that we would like to complete a POLST while he is admitted here in the hospital. Further discussion had later on this afternoon. He continues to be indecisive. Would not want to be dependent on others for all of his care, but would only prefer to survive a catastrophic medical event if he were likely to be able to live at home again following it. . We will continue these discussions. CONSULTS | PROCEDURES Consultations: Dr. Blackwell, oncology. Recommends transfer to higher level of care Procedures: Chest x-ray:Surgical changes and devices: None. Lungs and pleura: No pleural effusions or pneumothorax. Bilateral perihilar opacification extending toward the upper lobes and medial lung bases. Mediastinum: Mediastinal contours appear normal. Heart size is normal. Bones and chest wall: No suspicious bony lesions. Overlying soft tissues appear unremarkable. intubation, left IJ central line and right femoral arterial line. HOSPITAL COURSE Hospital Course: (1)Cardiac Arrest: Acute cardiopulmonary arrest. Patient underwent 3 rounds of CPR. Two doses of epinephrine were given 1 amp of bicarb was given. ROSC was achieved. He was placed on fentanyl and Versed drips for sedation. Postarrest he had a heart rate in the 110's a blood pressure systolic in the 120s and was in sinus rhythm. Earlier in the day he had been loaded with amiodarone and was on diltiazem drip. I was speaking with Dr. Pride at the time that the patient had his episode of cardiac arrest. I spoke with Dr. Pride again after the arrest to accept the patient in transfer to the [facility]. Awaiting bed availability we are giving the patient 1 g of hydroxyurea through his OG tube. We do not have IV hydroxyurea available to us here. In the 2 hours before and after the code the patient made about 30 cc of urine. He then lost pulses again and underwent 2 rounds of CPR with epinephrine administered. decision was made to discontinue resusitative efforts due to medical futility. His was brought to the bedside immediately. (2)Acute Blast crisis Initially presented as sepsis. despite appropriate and aggressive treatment, escalation of antibiotics, and transfer to the ICU for cardiopulmonary support, his sepsis syndrome worsened. It then became apparent that this was more than a worsening sepsis, but rather an acute blast crisis. As his illness progressed, CBC was repeated and 6% blasts were seen on smear. At this point, the patient was in cardiopulmonary arrest, and all efforts were made to sustain his life. In speaking with Dr Pride at , hydroxyurea was mentioned as a temporizing measure, and we would have given this via OG tube, if patient had survived. (3) Hypoxia: Plan: Acute hypoxic respiratory failure likely secondary to pneumonia, community- acquired as evidenced by bilateral perihilar opacifications. discussed with Dr Toledo in the ED and decision was made to admit. He has an underlying history of asthma/COPD takes Singulair on a daily basis and uses albuterol as needed. He has had increasing shortness of breath over the last 5 days and this worsened this morning when he called EMS and was brought to the emergency department with hypoxia down to about 90%. Since being in the emergency department he has weaned off of oxygen but does remain subjectively short of breath. As the day progressed his oxygen requirement increased to 4 to 6 L via nasal cannula. His tachypnea also increased. (2) Sepsis: Plan: Sepsis likely of respiratory origin given findings on his chest x-ray. He has an elevated white blood cell count of 43,000 his baseline is around 11. He has an elevated lactic acid of 4.0 on admission which rises to 4.9 despite fluid resuscitation with 2 L. Laboratory Tests 02/16/24 02/16/24 02/16/24 06:41 09:52 12:55 Lactic Acid 4.0 H* 4.9 H* 5.2 H* 02/16/24 15:54 Lactic Acid 8.3 H* He shows end organ dysfunction in the form of elevated bilirubin from 0.8 several months ago to 3.6 today. Incidentally he did have a right upper quadrant ultrasound done which did not show any gallstones wall thickening or other evidence of biliary disease. This was done about a year ago. (3) Tachycardia: Plan: He denies any history of atrial fibrillation. He has been having dyspnea on exertion progressive for the last 5 or so days. At home he has not noticed any swelling of his ankles. He is not having any paroxysmal nocturnal dyspnea. He denies any history of heart problems. He has been tachycardic from the time of presentation into the high 120s. EKG around the time of admission shows a rate of 133 and this is sinus tachycardia. After transfer to the floor his tachycardia increases. Significant for atrial flutter with rapid ventricular response. He is tachypneic to rate of about 30 but otherwise denies any chest pain or increasing dyspnea. He is not having any dizziness. He has stood up to vomit several times. And has not had any near syncope. Valsalva maneuver has been ineffective in reducing his heart rate. He has been transferred to the ICU. He was started on a diltiazem drip. This was ineffective at reducing his heart rate. He was therefore loaded with amiodarone. His heart rate continues to be elevated. He became increasingly more agitated and at that point was started on a Precedex drip to control his agitation. His heart rate is down into the 110's at this point with atrial fibrillation It is possible that part of his tachycardia is also due to withdrawal. He drinks about 2- 25 ounce cans of Fosters Lager every day. Additionally he smokes marijuana daily. His states he is not a heavy smoker of marijuana but he does smoke daily. His also states that he is a very anxious person. (4) Acute kidney injury: Plan: Baseline creatinine is 0.8. On presentation today his creatinine is 1.7. This is acute kidney injury likely related to his acute sepsis. He has been treated in the emergency department with sepsis dose fluids. We are continuing him on fluids at a rate of 125 cc/h given his vomiting and disinterest in p.o. intake. I have ordered repeat BMP for the a.m. We will also monitor his urine output. As the significance of his illness increased, I did have a Tesfaye catheter inserted. His urine out put has been adequate. (5) Pneumonia: Plan: Chest x-ray shows bilateral perihilar infiltrates. Community-acquired pneumonia associated with sepsis in a patient with myelodysplastic syndrome. He has some mild underlying reactive airway disease which is treated at baseline with Singulair and albuterol as needed. He has a cefazolin allergy and therefore I have ordered Levaquin 750 mg IV daily. He received first dose in the emergency department. As his sepsis syndrome increased through the afternoon with increasing oxygen requirements and rising lactate I instituted broad-spectrum antibiosis with cefepime and vancomycin. This patient lists a cefazolin allergy as itching. He tolerated the cefepime well without any reaction. He was given 1 dose of Benadryl. (6) MDS (myelodysplastic syndrome), low grade: Plan: This is being managed through observation. no treatment is indicated. he is following with Dr Blackwell in about a month. He states that he was previously seen once at [facility] and the oncologist there recommended observational management. He has subsequently been seen at [facility] oncology department. I have a note from the oncology nurse practitioner in November 2023. Her impression is below. Newly Diagnosed Low-Grade Myelodysplastic Syndrome (03/2023) * Bone marrow biopsy (04/12/2023): Hypercellular marrow (90% cellularity), increased trilineage hematopoiesis, increased ringed sideroblasts, < 5% myeloid blasts, no evidence of acute leukemia, high-grade MDS, lymphoma, plasma cell neoplasm, or metastatic carcinoma * Flow cytometry: Immunophenotypic abnormalities of myeloid cell populations, 0.28% myeloid blasts after lysis of erythroid elements, increased ring sideroblasts on iron stain, mild reticulin fibrosis (patchy 1+) * BCR/abl negative, Normal free kappa lambda LC, ratio * Had 2nd opinion at [facility], per Pt. no intervention needed at this time. (7) Thrombocytopenia/ now DIC: Plan: Likely related to his acute illness. No acute bleeding. He has been started on a heparin 5k units sc for DVT prophylaxis. first dose to be given at 2100- was not given due to his acute decompensation 2 Laboratory Tests 02/16/24 14:20 PT 24.6 H INR 2.4 H APTT 34.1 H Fibrinogen 652 H D-Dimer 885.9 H ALLERGIES Allergies Allergy/AdvReac Type Severity Reaction Status Date / Time codeine Allergy Intermediate Nausea Verified 02/16/24 03:56 cefazolin Allergy Itching Verified 02/16/24 03:56 MEDICATIONS Ambulatory Orders Medication Instructions Recorded Confirmed omeprazole 20 mg capsule,delayed 20 mg PO DAILY 04/12/17 02/16/24 release propranolol 40 mg tablet 20 - 40 mg PO BID 04/12/17 02/16/24 montelukast 10 mg tablet 1 tab ORAL DAILY 01/24/18 02/16/24 cholecalciferol (vitamin D3) 125 5,000 unit PO DAILY 04/18/19 02/16/24 mcg (5,000 unit) capsule nystatin 100,000 unit/gram topical 1 applic TP PRN PRN As Needed Per 04/18/19 02/16/24 ointment Provider Orders triamcinolone acetonide 0.1 % 1 applic TP PRN PRN As Needed Per 04/18/19 02/16/24 topical cream Provider Orders testosterone cypionate 200 mg/mL 0.3 ml IM OAW 02/10/20 02/16/24 intramuscular oil (Depo-Testosterone) albuterol sulfate 90 mcg/actuation 1 - 2 puff inhalation Q4HR PRN 02/06/23 02/16/24 aerosol inhaler (Ventolin HFA) Shortness Of Air/Wheezing vitamin B complex (B 1 ea PO DAILY 02/06/23 02/16/24 Complex-Vitamin B12 tablet) ondansetron 4 mg disintegrating 4 mg translingual Q6H PRN Nausea / 12/25/23 02/16/24 tablet Vomiting #30 tabs syringe with needle 3 mL 25 gauge #12 ea 01/02/24 x 1" (BD Luer-Ladarius Syringe) oxybutynin chloride 5 mg 5 mg PO DAILY 02/16/24 02/16/24 tablet,extended release 24 hr vit C 250 mg-vit E 200 unit-zinc 1 cap PO BID 02/16/24 02/16/24 ox 12.5 [id number]-[id number]-zeax capsule PHYSICAL EXAM AT DISCHARGE Physical Exam Other/Comments: 02/16/24 19:29. Code blue ended. ROSC not obtained, further efforts are medically futile. Tubes and lines disconnected. Mattie brought to bedside after explanation of failure of resusitative efforts. I was at the bedside continuously from [id number], and after to support patient and family. This patient had a degree of critical illness that is threatening one or more vital organ systems. There was a probability of life threatening deterioration of his condition. I spent 75 minutes of critical care time with this patient today. This included coordination of care, review and ordering of lab work, adjusting medications, monitoring response to treatment and participating in resuscitation efforts.This is exclusive of time spent in evaluation and management codes. . LABS 02/16/24 16:59 02/16/24 16:40 SEPSIS Current Stage of Sepsis: Sepsis Possible source of Sepsis: Pulmonary Sepsis Criteria: Recorded Heart Rate greater than 90 bpm, WBC count greater than 12,000 or less than 4000, Renal: urine output less than 0.5ml/kg/hr for 2 hours or creatinine gr, Metabolic: lactate > 2 mmol/L and Hepatic: Bilirubin greater than 2mg/dl TIME SPENT Time Spent in Discharge (Minutes): 45 Discharge Plan Discharge Patient Disposition: 20 Condition: Fair Prescriptions: No Action ondansetron 4 mg tablet,disintegrating 4 mg translingual Q6H PRN (Reason: Nausea / Vomiting) Qty: 30 0RF (DME) BD Luer-Ladarius Syringe 3 mL 25 gauge x 1" syringe See Rx Instructions .ROUTE .COMPLEX Qty: 12 11RF Dose Instruction: USE 1 SYRINGE EVERY 10 DAYS Rx Instructions: USE 1 SYRINGE EVERY 10 DAYS propranolol 40 MG tablet 20 - 40 mg PO BID Rx Instructions: 20 mg a.m., 40 mg p.m. omeprazole 20 MG capsule,delayed release(DR/EC) 20 mg PO DAILY montelukast 10 MG tablet 1 tab ORAL DAILY triamcinolone acetonide 454 APPLIC/454 GM cream 1 applic TP PRN PRN (Reason: As Needed Per Provider Orders) cholecalciferol (vitamin D3) 5,000 UNIT capsule 5,000 unit PO DAILY nystatin 15 GM ointment 1 applic TP PRN PRN (Reason: As Needed Per Provider Orders) testosterone cypionate [Depo-Testosterone] 200 MG/ML oil 0.3 ml IM OAW vitamin B complex [B Complex-Vitamin B12] 1 EACH tablet 1 ea PO DAILY albuterol sulfate [Ventolin HFA] 200 PUFFS/18 GM HFA aerosol inhaler 1 - 2 puff inhalation Q4HR PRN (Reason: Shortness Of Air/Wheezing) oxybutynin chloride 5 mg tablet extended release 24hr 5 mg PO DAILY Patient Comments: TAKE 1 TABLET BY MOUTH ONCE DAILY vit C-E-zinc yt-pmoo-pdq-zeax 250 mg-200 unit -12.5 mg-1 mg capsule 1 cap PO BID Interventions: Belongings Inventory Last Done: 02/16/24 12:20 Print Language: Finnish Date/Time: 02/16/24 19:29
[2024-02-16 17:43] LABS: PLT - PLATELET COUNT 29 10^3/uL (130-450); WHITE BLOOD COUNT 82.7 x10^3/uL (4.8-10.8)
[2024-02-16 17:44] LABS: ABNORMAL LYMPHS % (MANUAL) 0 %; BAND NEUTROPHILS % (MANUAL) 0 %
[2024-02-16] MEDS ORDERED: HEPARIN 5,000 UNIT/ML VIAL SUBQ SCH ×2 (18:00→21:00)
[2024-02-16 18:06] LABS: LYMPHOCYTES # (MANUAL) 9.1 10^3/uL (1.5-3.5); LYMPHOCYTES % (MANUAL) 11 %; METAMYELOCYTES % (MANUAL) 2 %; MONOCYTES # (MANUAL) 41.4 10^3/uL (0.0-1.0); MYELOCYTES % (MANUAL) 2 %
[2024-02-16 18:09] LABS: PLATELET ESTIMATE, MANUAL DECREASED (<130,000) (NORMAL); PLATELET MORPHOLOGY NORMAL APPEARANCE (NORMAL)
[2024-02-16] MEDS ORDERED: ROCURONIUM 50 MG/5 ML VIAL ONE (18:10)
[2024-02-16] MEDS ORDERED: ETOMIDATE 40 MG/20 ML VIAL IVP ONE ×2 (18:10→18:45)
[2024-02-16 18:11] LABS: BLAST CELLS % (MANUAL) 6 %
[2024-02-16 18:14] LABS: SLIDE SENT FOR PATH REVIEW? Indicated
[2024-02-16] MEDS: ROCURONIUM 50 MG/5 ML VIAL IVP ONE (18:16)
[2024-02-16] MEDS: ETOMIDATE 40 MG/20 ML VIAL IVP ONE (18:16)
[2024-02-16 18:19] LABS: NUCLEATED RBC (MANUAL) 5 %
[2024-02-16 18:20] LABS: DIFFERENTIAL COMMENT MANUAL DIFFERENTIAL
[2024-02-16] MEDS: EPINEPHrine 4 MG in DEXTROSE 5% 246 ML IV SCH (18:22)
[2024-02-16] MEDS: MIDAZOLAM DRIP 50 MG/50 ML 50 MG/50 ML BAG IV SCH (18:25)
[2024-02-16] MEDS: fentaNYL 2,500 MCG/250 ML 2,500 MCG/250 ML BAG IV SCH (18:25)
[2024-02-16 18:29] LABS: ALBUMIN 3.7 g/dL (3.2-5.5); ALBUMIN/GLOBULIN RATIO 1.4 (1.0-2.2); BILIRUBIN,TOTAL 3.7 mg/dL (0.2-1.0); CALCIUM 7.7 mg/dL (8.5-10.3); CREATININE 1.7 mg/dL (0.6-1.3); POTASSIUM 5.2 mmol/L (3.5-4.5); TOTAL PROTEIN 6.3 g/dL (6.4-8.9)
[2024-02-16] MEDS: ACETAMINOPHEN 1,000 MG/100 ML 1,000 MG/100 ML BAG IV ONE (18:30)
[2024-02-16] MEDS ORDERED: MIDAZOLAM DRIP 50 MG/50 ML 50 MG/50 ML BAG IV ONE (18:32)
[2024-02-16] MEDS ORDERED: SODIUM CHLORIDE 0.9% 250 ML IV ONE (18:33)
[2024-02-16] MEDS ORDERED: SODIUM BICARBONATE ABBOJECT 50 MEQ/50 ML SYRINGE ONE (18:45)
[2024-02-16] MEDS ORDERED: EPINEPHrine ABBOJECT 1 MG/10 ML SYRINGE ONE (18:45)
[2024-02-16] MEDS ORDERED: fentaNYL 2,500 MCG in SODIUM CHLORIDE 0.9% 200 ML IV SCH (19:00)
[2024-02-16] MEDS ORDERED: HYDROXYUREA 500 MG CAPSULE NG ONE (19:07)
[2024-02-16] MEDS ORDERED: NOREPINEPHRINE/0.9 % NS 8 MG/250 ML BAG IV ONE (19:14)
[2024-02-16 19:24] VITALS: BP 87/62; TEMP 100.6; O2SAT 92
[2024-02-16] MEDS ORDERED: SODIUM BICARBONATE 8.4% 50 MEQ/50 ML VIAL ONE ×3 (19:25→19:33)
[2024-02-16] MEDS ORDERED: DEXTROSE 5% 1,000 ML IV ONE (19:28)
--- NOTE | 2024-02-17 09:25 | XRAY Report ---
PROCEDURE: XR Chest 1V INDICATIONS: ET Tube placement TECHNIQUE: One view of the chest was acquired. COMPARISON: Same-day radiograph FINDINGS: Surgical changes and devices: ET tube is seen in the mid trachea. Lungs and pleura: Lower lung volumes and increased moderate diffuse interstitial opacities. No drain able effusions. Mediastinum: Cardiac mediastinal contours are unchanged allowing for differences in lung volumes. He art size is upper limit of normal. Bones and chest wall: Degenerative changes IMPRESSION: ET tube terminates in mid trachea. Increased moderate diffuse lung opacities, and lower lung volumes. Reviewed by: Nomi Pidera MD on 02/17/2024 8:23 AM [facility] Approved by: Nomi Piedra MD on 02/17/2024 8:23 AM [facility] Station ID: [id number]
--- NOTE | 2024-02-17 10:09 | PROCEDURE REPORT ---
Hospitalist Intubation Note Intubation Indication: acute respiratory failure Medications: Etomidate and Rocuronium Blade: Glidescope Tube: Size-enter number (7.5) and Marked at lips-enter cm Route: Oral Confirmation: Direct visualization, End tidal CO2 and Chest xray Complications: positive No compications
--- NOTE | 2024-02-17 10:13 | PROCEDURE REPORT ---
Hospitalist Procedure Note Procedure Note Procedure Note: Central Venous Catheter (CVC, Central Line) Placement Date: 02/16/2024 Time: 19:00 Indication: Hemodynamic monitoring/Intravenous access Resident: Attending: A time-out was completed verifying correct patient, procedure, site, positioning, and special equipment if applicable. The patient was placed in a dependent position appropriate for central line placement based on the vein to becannulated. The patients left neck was prepped and draped in sterile fashion. A triple lumen 9-FrenchCordiscatheter was introduced into the the internal jugular using the Seldingertechnique and under ultrasound guidance. The catheter was threaded smoothly over the guide wire and appropriate blood return was obtained. Each lumen of the catheter was evacuated of air and flushed with sterile saline. The catheter was then sutured in place to the skin and a sterile dressing applied. Perfusion to the extremity distal to the point of catheter insertion was checked and found to be adequate. Estimated Blood Loss: 5ml The patient tolerated the procedure well and there were no complications. Position of Line catheter was confirmed by x ray.
--- NOTE | 2024-02-17 10:25 | PROCEDURE REPORT ---
Hospitalist Procedure Note Procedure Note Procedure Note: 02/16/2024 19:00 Dr. Ward PROCEDURE SUMMARY: The R inguinal region was prepped using chlorhexidine scrub and draped in sterile fashion using a three quarter sheet drape and sterile towels. The femoral pulse was identified. Ultrasound visualizing the femoral pulse throughout the procedure, the introducer needle was inserted into the femoral artery. Arterial blood was withdrawn. The syringe was removed and a guidewire was advanced through the needle into the femoral artery. The needle was exchanged over the wire for an arterial catheter. The wire was removed and the catheter was secured to the skin using a suture. The patient tolerated the procedure without any hemodynamic compromise. At time of procedure completion, the catheter was connected to the luggage liner and calibrated. Appropriate waveform and blood pressure tracing was observed. Estimated blood loss is 5ml.
[2024-02-18] MEDS ORDERED: levoFLOXacin 750 MG/150 ML 750 MG/150 ML BAG IV SCH (07:00)
[2024-02-23 07:23] LABS: PATHOLOGIST SLIDE COMMENTS SEE SEPARATE REPORT
== END 2024-02-16 19:29 | disposition expired ==
LOC: MS2 03:50 → ED 03:50 → MS2 08:11 → ICU 12:11
PROVIDERS: ADMIT Physician Assistant Medical; ATTEND Physician Assistant Medical
DX: D46.20 Refractory anemia with excess of blasts, unspecified; J44.0 Chronic obstructive pulmonary disease with (acute) lower respiratory infection; J96.01 Acute respiratory failure with hypoxia; A41.9 Sepsis, unspecified organism; Z78.1 Physical restraint status; R65.20 Severe sepsis without septic shock; R11.2 Nausea with vomiting, unspecified; I48.91 Unspecified atrial fibrillation; K43.9 Ventral hernia without obstruction or gangrene; D50.9 Iron deficiency anemia, unspecified; E80.6 Other disorders of bilirubin metabolism; Z85.46 Personal history of malignant neoplasm of prostate; J18.9 Pneumonia, unspecified organism; D69.6 Thrombocytopenia, unspecified; R00.0 Tachycardia, unspecified; N17.9 Acute kidney failure, unspecified; I46.9 Cardiac arrest, cause unspecified